=== PATIENT | female | born 1955 | race Caucasian/White ===

== ENCOUNTER → 2017-10-17 | Outpatient (CLI) | payer MEDICARE, MEDICAID ==
[~2017-10-17] MED LIST: ACTONEL; AMITIZA 24 MCG24 MC1 PO; BONIVA150 MG PO; CHOLESTEROL MED; CIPRO250 M1; CIPRO250 M1 PO; COMBIVENT INH; CYMBALTA30 MG PO; DILAUDID 2 MG TA2 MG PO; DONNATAL; DOXYCYCLINE; DULCOLAX5 MG PO; EZETIMIBE; FENTANYL PA50 MCG/HR TRANSDERM; FLEXERIL PO; LIORESAL 10 MG10 MG PO; MIRALAX255 GM PO; NAPROSYN500 MG PO; OMEPRAZOLE; ONDANSETRON HCL4 M2 PO; OXYCODONE HCL 55 MG PO; OXYCODONE HCL5 M1 PO; OXYCONTIN PO; OXYCONTIN20 M1 PO; OXYCONTIN30 MG PO; OXYCONTIN40 MG PO; PRILOSEC2.5 MG; PRINIVIL20 MG; RESTORIL15 M1 PO; RESTORIL30 MG PO; ROXICODONE5 M2 PO; SPIRIVA INH; ZESTRIL PO; ZYRTEC10 MG PO
--- NOTE | 2017-10-19 08:15 | PAINCON ---
[facility] [address] [place] [address] PAIN MANAGEMENT CONSULTATION Name: SONJA GARCÍA Room: [facility] Dina#: [id number] Admission: 10/17/17 Attend Phys: Nba Amador Discharge: Date of : 57 Report #: [id number] THIS REPORT FOR: //name// CC: FAM unknown Ruben Contreras The patient is a 62-year-old female, typically treated for axial back pain, SI mediated pain, chronic pain syndrome, history of TMJ dysfunction, requiring high risk complex medication management. Last seen in the pain clinic 08/22/2017, continued on baseline medication, having weaned down from OxyContin 40 mg b.i.d. to 30 mg b.i.d., oxycodone 5 mg 4 times a day. Restoril weaned from 30 to 15 mg, now using 20/30 nights. Co-analgesics include baclofen 10 mg t.i.d., Cymbalta 30 mg daily, Amitiza for opiate-induced constipation 24 mcg, temazepam as noted 15 mg, dispensed 20 tablets for 30 days. She returns to pain clinic today noting subjective pain score is 7.5/10 on the VAS, 5 feet 2 inches, 132 pounds female, BMI is 24.3 kg/m2. Blood pressure 137/85, pulse 89, and respirations are 16. She continues to use tobacco products and was counseled regarding same. She notes cold weather seems to make pain worse, pain is primarily in the mid back today along with her chronic TMJ pain. She is suffering from some insomnia. We spent a good deal of time today talking again about sleep hygiene. Told the patient to eschew TV at bedtime, reading from a digital pad, suggest reading from print literature as it tends to be somewhat less stimulating in the visual cortex and relaxing. Television watching tends to stimulate multiple areas with high animation in the brain. We reviewed the fact that opiate medications are being used to provide analgesia adequate to support activities of daily living, not attempting to achieve a specific pain score on the 0-10 Visual Analog Scale. The current opiate medications are providing sufficient analgesia to allow the patient to participate in activities of daily living. The patient is not exhibiting any aberrant behavior suggestive of drug diversion. The patient is not having any adverse reactions to medications. The patient is not suffering from daytime somnolence or mental acuity changes. The patient is managing opiate-induced constipation with appropriate srob-cus-kegkblb agents and dietary considerations. The patient was counseled on concern for caution with operating a motor vehicle while using opiate medications. A physical exam was performed and the patient's functional status was evaluated. All patients with back pain were advised against the bed rest greater than 4 days and were advised to return to normal activities. Pain score assessment was noted and the treatment plan was reviewed with the patient. All current medications, both prescribed and OTC were reviewed and reconciled on the electronic medical record. Tobacco screening was accomplished and smoking cessation was advised when indicated. BMI was noted and diet/[place] [address] PAIN MANAGEMENT CONSULTATION Name: SONJA GARCÍA Room: [facility] Arroyo#: [id number] Admission: 10/17/17 Attend Phys: Nba Amador Discharge: Date of : 57 Report #: [id number] modification was recommended for all patients following outside normal parameters. I reviewed with the patient today their responsibilities to safeguard prescription medications, reviewed their responsibility to utilize medications only as prescribed by the physician. They are to seek and receive pain medications only from 1 physician group ( [facility]). They are to use 1 pharmacy and keep the clinic informed if they change pharmacies. Their responsibilities include making followup visits in a timely fashion and to avoid abrupt discontinuation of medication usage. Their responsibilities further include bringing their medications (bottles from the pharmacy with residual pills) to the visit for possible confirmation of pill counts and the patient understands it is their responsibility to submit to random drug screens to ensure both that the medications prescribed are present, and that no other controlled substances are present. All prescriptions provided today were generated electronically. ASSESSMENT: Chronic pain syndrome requiring high risk complex medication management, sacroiliac mediated pain, axial back pain, temporomandibular joint dysfunction, stable on baseline medication. RECOMMENDATION: Continue OxyContin 30 mg b.i.d., oxycodone 5 mg up to 4 a day. The patient does not require prescriptions for her adjuvant medications. Buccal drug swab was obtained today. No aberrant behavior suggestive of drug diversion, simply complying with our opiate consent to treat contract. Discharged in good and stable condition. <ELECTRONICALLY SIGNED> By: Ruben Contreras DO 10/19/17 0815 [id number] [id number] Contreras DO /bhakti
== END ==
LOC: M.PC 02:01
DX: G89.4 Chronic pain syndrome (principal); M53.3 Sacrococcygeal disorders, not elsewhere classified; M54.89 Other dorsalgia; M26.69 Other specified disorders of temporomandibular joint; Z79.899 Other long term (current) drug therapy

== ENCOUNTER → 2017-12-12 | Outpatient (CLI) | payer MEDICARE, MEDICAID ==
--- NOTE | 2017-12-13 10:21 | PAINCON ---
[facility] [address] [place] [address] PAIN MANAGEMENT CONSULTATION Name: SONJA GARCÍA Room: [facility] Arroyo#: [id number] Admission: 12/12/17 Attend Phys: Nba Amador Discharge: Date of : 57 Report #: [id number] THIS REPORT FOR: //name// CC: FAM unknown Sam Contreras The patient is a 62-year-old female being treated for chronic SI mediated pain, axial back pain, history of TMJ dysfunction, a component of insomnia, requiring complex medication management. Last seen in the pain clinic on 10/17/2017. Continued on OxyContin 30 mg b.i.d. (decreased from 40 mg b.i.d. about 6 months ago), oxycodone 5 mg 4 times a day for breakthrough pain. We recognized that this still reflects a supratherapeutic dose of narcotic, roughly 120 mg of morphine. Continued Restoril 15 mg at bedtime, limit 20 tablets for 30 days (down from 30 mg, 30 tablets monthly), baclofen 10 mg 3 times a day, Cymbalta 30 mg daily and Amitiza for opiate-induced constipation (24 mcg). The patient continues to smoke and was counseled regarding same. Last buccal drug swab of 10/17/2017 was positive for prescribed medications as well as a nicotine byproduct. Physical exam is otherwise unchanged. A pleasant 62-year-old female. She is osteoporotic and does use Boniva monthly. A cachectic with a BMI of approximately 19 kilograms per meter squared. Limited oral range of motion due to TMJ dysfunction, chronic pain, left greater than right TMJ. Rises from chair using armrest. Diffuse axial back pain. The lower extremity strength is symmetric and gait is actually tandem. We reviewed the fact that opiate medications are being used to provide analgesia adequate to support activities of daily living, not attempting to achieve a specific pain score on the 0-10 Visual Analog Scale. The current opiate medications are providing sufficient analgesia to allow the patient to participate in activities of daily living. The patient is not exhibiting any aberrant behavior suggestive of drug diversion. The patient is not having any adverse reactions to medications. The patient is not suffering from daytime somnolence or mental acuity changes. The patient is managing opiate-induced constipation with appropriate fooe-fvw-ertbzps agents and dietary considerations. The patient was counseled on concern for caution with operating a motor vehicle while using opiate medications. A physical exam was performed and the patient's functional status was evaluated. All patients with back pain were advised against the bed rest greater than 4 days and were advised to return to normal activities. Pain score assessment was noted and the treatment plan was reviewed with the patient. All current medications, both prescribed and OTC were reviewed and reconciled on the electronic medical record. Tobacco screening was accomplished and smoking cessation was advised when indicated. BMI was noted and diet/[place] [address] PAIN MANAGEMENT CONSULTATION Name: SONJA GARCÍA Room: [facility] Arroyo#: [id number] Admission: 12/12/17 Attend Phys: Nba Amador Discharge: Date of : 57 Report #: [id number] modification was recommended for all patients following outside normal parameters. I reviewed with the patient today their responsibilities to safeguard prescription medications, reviewed their responsibility to utilize medications only as prescribed by the physician. They are to seek and receive pain medications only from 1 physician group ( [facility]). They are to use 1 pharmacy and keep the clinic informed if they change pharmacies. Their responsibilities include making followup visits in a timely fashion and to avoid abrupt discontinuation of medication usage. Their responsibilities further include bringing their medications (bottles from the pharmacy with residual pills) to the visit for possible confirmation of pill counts and the patient understands it is their responsibility to submit to random drug screens to ensure both that the medications prescribed are present, and that no other controlled substances are present. All prescriptions provided today were generated electronically. ASSESSMENT: Chronic axial back pain, lumbar radiculopathy, sacroiliac mediated pain, history of temporomandibular joint dysfunction, requiring complex medication management; component of insomnia and nicotine habituation. RECOMMENDATIONS: 1. Long discussion with the patient today about therapeutic options. Continue Restoril 15 mg, limit 20 tablets for 30 days. We again stressed sleep hygiene. 2. Smoking cessation strongly encouraged. 3. Continue baclofen, Cymbalta and Amitiza unchanged. We did continue baseline narcotic, OxyContin 30 mg b.i.d. with oxycodone 5 mg 4 times a day. We had trialed decreasing the OxyContin 20 mg b.i.d. with significant decrease in functional status. Today, we talked about moving forward, perhaps in 2 months when the weather is a little warmer decreasing OxyContin to an asymmetric dosing, OxyContin 30 mg in the morning with 20 mg at bedtime, decreasing the overall OxyContin load from 60-50 mg. We will try this for 2 months. Hopefully, we can then wean down to 20 mg b.i.d. I talked about concerns for supratherapeutic dose of narcotic and concurrent opiate habituation tolerance and most importantly opiate-induced hyperalgesia. Despite a supratherapeutic load of narcotic, 80 mg of oxycodone, roughly equating to 120 mg of morphine, the patient continues to complain of axial back pain. She rates anywhere from 6-9 on a VAS. Again, strongly recommended smoking cessation and increased physical activity. We will move forward with further opiate wean [place] [address] PAIN MANAGEMENT CONSULTATION Name: SONJA GARCÍA BHAVNA [id number] Admission: 12/12/17 Attend Phys: Nba Amador Discharge: Date of : 57 Report #: [id number] Discharged in good and stable condition after moderately prolonged visit spent counseling the patient, greater than 25 minutes was spent with the patient reviewing therapeutic options, issues and concerns for supratherapeutic narcotic. <ELECTRONICALLY SIGNED> By: Ruben Contreras DO 12/13/17 1021 0848 [id number] Contreras DO /nt
== END ==
LOC: M.PC 03:34
DX: M53.3 Sacrococcygeal disorders, not elsewhere classified (principal); M54.9 Dorsalgia, unspecified; G47.00 Insomnia, unspecified; F17.200 Nicotine dependence, unspecified, uncomplicated; M54.16 Radiculopathy, lumbar region; Z79.899 Other long term (current) drug therapy

== ENCOUNTER → 2018-02-06 | Outpatient (CLI) | payer MEDICARE, MEDICAID ==
--- NOTE | 2018-02-07 09:37 | PAINCON ---
[facility] [address] [place] [address] PAIN MANAGEMENT CONSULTATION Name: SONJA GARCÍA Room: [facility] Dina#: [id number] Admission: 02/06/18 Attend Phys: Nba Amador Discharge: Date of : 57 Report #: [id number] THIS REPORT FOR: //name// CC: FAM unknown Ruben Contreras DATE OF SERVICE: 02/06/2018 HISTORY OF PRESENT ILLNESS: The patient is a 62-year-old female being treated for SI mediated pain and chronic TMJ pain. The patient has weaned down from OxyContin 40 mg b.i.d. in the fall to OxyContin 30 mg b.i.d. Continued on oxycodone 5 mg 4 times a day. Co-analgesics include baclofen 10 mg t.i.d., Cymbalta 30 mg daily, Amitiza for opiate-induced constipation and Restoril 15 mg at bedtime, limit 20 tablets for 30 days. Since we last saw the patient, she was admitted to the hospital on 01/14/2018 through 01/21/2018 for colitis, sepsis and MRSA infection. She did finish her antibiotics. She has not had to use MiraLax or Amitiza with the antibiotics. She notes she has been following up with the Dental Surgery again at [facility]. She has dramatic limitation in range of motion of the TMJ. Left TMJ is essentially frozen. Right TMJ moves perhaps 1-2 mm. She can open her mouth, maybe, 5 mm and close her mouth about 3 mm. Mastication is really impossible. She has very poor fitting dentures due to inability to open. She has continued to smoke, though she states she is using "less" tobacco. She did get a CT scan of her head last week and consideration for surgery. Today, we did discuss ongoing weaning opiate. We had tried in the past weaning from OxyContin 30 mg down to 20 mg b.i.d. with diminished functional status. Today, we talked about decreasing to an asymmetric dose, continuing OxyContin 30 mg in the morning but decreasing OxyContin 20 mg at bedtime. Continue oxycodone 5 mg 4 times a day. We will try this for 30 days and then drop to OxyContin 20 mg b.i.d. for 4-week release prescription. We will see the patient back in 2 months for reevaluation. In the interval, if she does move forward with surgery, may need to increase her basal narcotic back to OxyContin 30 mg b.i.d. We reviewed the fact that opiate medications are being used to provide analgesia adequate to support activities of daily living, not attempting to achieve a specific pain score on the 0-10 Visual Analog Scale. The current opiate medications are providing sufficient analgesia to allow the patient to participate in activities of daily living. The patient is not exhibiting any aberrant behavior suggestive of drug diversion. The patient is not having any adverse reactions to medications. The patient [place] [address] PAIN MANAGEMENT CONSULTATION Name: SONJA GARCÍA Room: [facility] [place]#: [id number] Admission: 02/06/18 Attend Phys: Nba Amador Discharge: Date of : 57 Report #: [id number] somnolence or mental acuity changes. The patient is managing opiate-induced constipation with appropriate muen-het-pjbxqoq agents and dietary considerations. The patient was counseled on concern for caution with operating a motor vehicle while using opiate medications. A physical exam was performed and the patient's functional status was evaluated. All patients with back pain were advised against the bed rest greater than 4 days and were advised to return to normal activities. Pain score assessment was noted and the treatment plan was reviewed with the patient. All current medications, both prescribed and OTC were reviewed and reconciled on the electronic medical record. Tobacco screening was accomplished and smoking cessation was advised when indicated. BMI was noted and diet/exercise modification was recommended for all patients following outside normal parameters. I reviewed with the patient today their responsibilities to safeguard prescription medications, reviewed their responsibility to utilize medications only as prescribed by the physician. They are to seek and receive pain medications only from 1 physician group ( [facility]). They are to use 1 pharmacy and keep the clinic informed if they change pharmacies. Their responsibilities include making followup visits in a timely fashion and to avoid abrupt discontinuation of medication usage. Their responsibilities further include bringing their medications (bottles from the pharmacy with residual pills) to the visit for possible confirmation of pill counts and the patient understands it is their responsibility to submit to random drug screens to ensure both that the medications prescribed are present, and that no other controlled substances are present. All prescriptions provided today were generated electronically. Physical exam shows a 62-year-old female. Again, she continues to smoke. BMI is 24.2 kilograms per meter squared. Blood pressure , pulse 91, respirations 16. Again, TMJ range of motion dramatically limited. Cervical range of motion is modestly limited. Upper extremity strength is symmetric. Diffuse tenderness across the low back. Gait is tandem. She does favor the right leg. States she had MRSA infection on her right foot. This is resolving. I did not examine the wound, left the dressings intact. ASSESSMENT: Chronic pain syndrome requiring complex medication management, temporomandibular joint dysfunction and lumbosacral spondylosis, all requiring complex medication management. RECOMMENDATION: Renew current medication as noted above including a slight wean in opiate. We have elected to get a buccal swab today. No aberrant behavior [place] [address] PAIN MANAGEMENT CONSULTATION Name: SONJA GARCÍA BHAVNA [facility] [id number] Admission: 02/06/18 Attend Phys: Nba Amador Discharge: Date of : 57 Report #: [id number] The patient was seen for prolonged visit today from 8:45 to 9:15, greater than 50% of this time spent reviewing plan, surgical issues moving forward, need, desire and reasons for opiate wean. I did discuss that I was leaving this practcice and that patient may need to find another physician to manage her pain needs. She indicated that she will follow up with her treating physicains at [facility]. Discharged in good and stable condition. <ELECTRONICALLY SIGNED> By: Ruben Contreras DO 02/07/18 0937 [id number] Contreras DO /nt
== END ==
LOC: M.PC 04:35
DX: M47.897 Other spondylosis, lumbosacral region (principal); G89.4 Chronic pain syndrome; M26.609 Unspecified temporomandibular joint disorder, unspecified side; Z79.899 Other long term (current) drug therapy

== ENCOUNTER → 2018-04-03 | Outpatient (CLI) | payer MEDICARE, MEDICAID ==
--- NOTE | 2018-04-04 07:56 | PAINCON ---
[facility] [address] [place] [address] PAIN MANAGEMENT CONSULTATION Name: SONJA GARCÍA BHAVNA Room: [facility] NEEMA Arroyo#: [id number] Admission: 04/03/18 Attend Phys: Nba Amador Discharge: Date of : 57 Report #: [id number] THIS REPORT FOR: //name// CC: Dr. Gopal Contreras DATE OF SERVICE: 04/03/2018 The patient is a 62-year-old female, long treated for chronic TMJ pain, axial back pain requiring complex medication management. Last seen in the Pain Clinic 02/06/2018. Random drug screen at that time was positive for prescribed medications and positive for nicotine products as well. To her credit, she decreased to about half pack a day, but does continue to smoke. She did follow up with her dental surgeons at [facility]. While she is not a candidate for TMJ joint replacement, they are talking about doing a procedure, which may enable her to at least get a little better range of motion. Currently, she only has mandibular opening of about 1 cm. We had weaned her OxyContin from 40 b.i.d. to 30 b.i.d. and the last visit dropped down to 30 in the morning, 20 at night and her 4-week release OxyContin prescription was for 20 b.i.d. She returns to Pain Clinic today noting this is helpful. Pain continues to be problematic and she did note decreased functional status with each decrement in the opiate, but she is overall stable. Increasing axial back pain with an SI component as well. PHYSICAL EXAMINATION: Shows 62-year-old female, BMI is 23.7 kg/m2. Blood pressure shows modest hypertension (numbers are on the chart), pulse 87, respirations 16. Again, very tender over the left jaw, very limited range of motion of mandible. Cervical range of motion is tender. Rises from chair using armrest. Very tender over the SI joints. Positive AUDELIA test and Gaenslen's test. Lower extremity strength, however, is preserved. We reviewed the fact that opiate medications are being used to provide analgesia adequate to support activities of daily living, not attempting to achieve a specific pain score on the 0-10 Visual Analog Scale. The current opiate medications are providing sufficient analgesia to allow the patient to participate in activities of daily living. The patient is not exhibiting any aberrant behavior suggestive of drug diversion. The patient is not having any adverse reactions to medications. The patient is not suffering from daytime somnolence or mental acuity changes. The patient is managing opiate-induced constipation with appropriate iuix-mjl-hjsiegg agents and dietary considerations. The patient was counseled on concern for caution with operating a motor vehicle while [place] [address] PAIN MANAGEMENT CONSULTATION Name: SONJA GARCÍA BHAVNA Room: [facility].#: [id number] Admission: 04/03/18 Attend Phys: Nba Amador Discharge: Date of : 57 Report #: [id number] A physical exam was performed and the patient's functional status was evaluated. All patients with back pain were advised against the bed rest greater than 4 days and were advised to return to normal activities. Pain score assessment was noted and the treatment plan was reviewed with the patient. All current medications, both prescribed and OTC were reviewed and reconciled on the electronic medical record. Tobacco screening was accomplished and smoking cessation was advised when indicated. BMI was noted and diet/exercise modification was recommended for all patients following outside normal parameters. I reviewed with the patient today their responsibilities to safeguard prescription medications, reviewed their responsibility to utilize medications only as prescribed by the physician. They are to seek and receive pain medications only from 1 physician group ( [facility]). They are to use 1 pharmacy and keep the clinic informed if they change pharmacies. Their responsibilities include making followup visits in a timely fashion and to avoid abrupt discontinuation of medication usage. Their responsibilities further include bringing their medications (bottles from the pharmacy with residual pills) to the visit for possible confirmation of pill counts and the patient understands it is their responsibility to submit to random drug screens to ensure both that the medications prescribed are present, and that no other controlled substances are present. All prescriptions provided today were generated electronically. ASSESSMENT #1: Chronic temporomandibular joint pain, chronic; axial back pain; myofascial pain component, requiring complex medication management. RECOMMENDATION: After long discussion with the patient today, we like to continue OxyContin 20 mg b.i.d. Continue oxycodone 5 mg up to 4 a day. We will try and gradually drop this down to 100 tablets for 30 days at next visit. We may consider again another asymmetric dosing change, OxyContin 20 mg in the morning and either OxyContin 10 or 15 at bedtime. Presently, the OxyContin 20 mg b.i.d. and oxycodone 5 mg 4 a day, the patient is taking effectively 90 mg morphine equivalent daily. While this does place her at the high end of the "mid risk group," we will like to try and wean further if able. I have taken the liberty of writing for 2 months of current medication including baclofen 10 mg t.i.d. for spasm and Cymbalta 30 mg at bedtime. ASSESSMENT #2: Lumbosacral spondylosis without myelopathy and SI mediated pain. RECOMMENDATION: Bilateral SI joint injection under fluoroscopy. PROCEDURE NOTE: After written and informed consent was obtained including risk of infection, nerve trauma, increased pain and weakness, the patient wishes to proceed. The patient was taken to the fluoroscopy suite, [place] [address] PAIN MANAGEMENT CONSULTATION Name: SONJA GARCÍA Room: [facility] Arroyo#: [id number] Admission: 04/03/18 Attend Phys: bNa Amador Discharge: Date of : 57 Report #: [id number] position. The sacroiliac joint was visualized using the C-arm, turned in an oblique fashion to align the joint. The skin overlying the area was cleansed with ChloraPrep. Skin wheal with Xylocaine was raised. A 22 gauge spinal needle was inserted into the inferior aspect of the joint. A low volume extension tubing was then attached to the needle after the stylet was removed. Negative aspiration was accomplished. A 1 mL of Omnipaque was injected which showed spread within the SI joint. 40 mg triamcinolone plus 2 mL of 0.5% preservative-free bupivacaine was injected into the joint. Needle was removed. Attention was then turned to the contralateral joint which was treated in an identical fashion. After both needles were removed the prep was washed off. Two Band-Aids were applied over the puncture sites. The patient was allowed to ambulate to the recovery room, monitored for an appropriate period of time, discharged in good and stable condition. <ELECTRONICALLY SIGNED> By: Ruben Contreras DO 04/04/18 0756 [id number] [id number] Centerchemo Contreras DO /nt
== END | disposition home or self-care (01) ==
LOC: M.PC 04:13
DX: M53.3 Sacrococcygeal disorders, not elsewhere classified (principal); G89.29 Other chronic pain; M47.817 Spondylosis without myelopathy or radiculopathy, lumbosacral region; M26.609 Unspecified temporomandibular joint disorder, unspecified side; M79.1 Myalgia; Z88.0 Allergy status to penicillin; Z79.891 Long term (current) use of opiate analgesic; Z88.8 Allergy status to other drugs, medicaments and biological substances; Z79.899 Other long term (current) drug therapy; Z98.890 Other specified postprocedural states

== ENCOUNTER → 2018-05-28 | Outpatient (CLI) | payer MEDICARE, MEDICAID ==
--- NOTE | 2018-05-31 08:37 | PAINCON ---
[address] [address] PAIN MANAGEMENT CONSULTATION Name: SONJA GARCÍA BHAVNA Room: [facility] HERMELINDA Frank.#: [id number] Admission: 05/28/18 Attend Phys: Dustin Syed MD Discharge: Date of : 57 Report #: [id number] THIS REPORT FOR: //name// CC: Dustin Kennedy DATE OF SERVICE: 05/28/2018 CHIEF COMPLAINT: Mid back and low back pain. HISTORY OF PRESENT ILLNESS: The patient is a 62-year-old female who is experiencing pain in her low and mid back area. She has chronic pain in her jaw as well. She states that she bent over to get an item out of a baby's crib. At that time, she felt some pain and discomfort in her rib cage. She feels that she may have fractured a rib. She states that she has osteoporosis and has had rib fractures in the past. The patient also is undergoing surgery because of jaw pain. She is going to have jaw surgery in 07/2018. She finds that oxycodone, baclofen and Cymbalta continue to be helpful items. She rates her pain as an 8/10 at this juncture. She was given a drug test. Appropriate metabolites were found indicating that she has most likely taken her medications as prescribed. She states that she is trying to discontinue the use of tobacco. ALLERGIES: PENICILLIN, CEPHALEXIN. CURRENT MEDICATIONS: Baclofen 10 mg t.i.d., temazepam 15 mg at bedtime, Dulcolax 5 mg, Zyrtec 10 mg, Cymbalta 30 mg at bedtime, Boniva 150 mg monthly, Combivent p.r.n. shortness of breath, lisinopril 20 mg, Amitiza 24 mg b.i.d., Naprosyn 500 mg b.i.d., ____ 2.5; Zofran, the patient states she stopped taking this medication, it was given to her in 2015 when she had renal infection; oxycodone 5 mg four times daily, OxyContin 20 mg one p.o. b.i.d., ciprofloxacin for sinus infection, prednisone Dosepak. PAST MEDICAL HISTORY: 1. Axial back pain. 2. SI joint mediated pain. 3. Chronic pain syndrome. 4. History of TMJ dysfunction. 5. Hepatitis C. PAIN CLINIC ASSESSMENT: 1. History of osteoarthritis: The patient states that she has osteoporosis, has osteoarthritis involving her knees, back and jaw. 2. Height 5 feet 2 inches, weight 128 pounds, BMI is 23.9. 3. Vital signs: Blood pressure 126/91, heart rate 100, respiratory rate 16, room air saturation 95%, temperature 98.8. 4. Pain score: 8/10. Pain areas are TMJ where a graft has been placed, [place] [address] PAIN MANAGEMENT CONSULTATION Name: SONJA GARCÍA BHAVNA [facility] [id number] Admission: 05/28/18 Attend Phys: Dustin Syed MD Discharge: Date of : 56 Report #: [id number] back and thoracic pain after bending over the crib, and noting some increased pain in the thoracic area of her rib, thoracic discomfort. 5. Blood thinner: The patient is not on a blood thinning medication. 6. Hypertension: The patient is being treated for hypertension. 7. Opioid therapy greater than 6 weeks: The patient is on opioid medication and receives her medications from the Pain Clinic. 8. Risk assessment tool. 9. Functional assessment tool. 10. Recreational drug use: The patient denies use of recreational drugs. 12. Tobacco: The patient has 50 packs a year history of smoking and smokes three-quarters of a pack of cigarettes per day. She was smoking 1-1/2 packs per day. 13. Alcohol: The patient denies use of alcoholic beverages. PHYSICAL EXAMINATION: GENERAL: The patient is a well-developed white female. She appears her stated age. She is alert and oriented x 3. Affect is appropriate. Speech is normal. The patient smells of tobacco. HEENT: Normocephalic, atraumatic. Extraocular eye muscles intact. Sclerae nonicteric. Mucous membranes are moist. NECK: With good range of motion. Upper extremity muscle strength is judged to be generally 5/5. HEART: Regular rate. ABDOMEN: Nontender. MUSCULOSKELETAL: Without significant scoliosis, kyphosis, or lordosis. The patient complains of pain in the right rib area. She states that she bent over a baby bed and felt something crack. She states she has osteoporosis and has had fractured ribs in the past. This has been problematic for the last 2 weeks. The patient has some pain and discomfort in the low back area, in the area of the SI joint. IMPRESSION: 1. Axial back pain. 2. History of sacroiliac joint mediated pain. 3. Chronic pain syndrome, treated with complex medical management. 4. History of temporomandibular joint dysfunction. 5. History of hepatitis C. The patient states that she has been treated appropriately for that condition. 6. Opioid-induced constipation. RECOMMENDATIONS: We discussed treatment options with the patient. At this juncture, we will provide a renewal of her current medications which include Restoril 15 mg a total of 20 tablets, hydrocodone 5 mg one p.o. t.i.d./q.i.d. 120 tablets, OxyContin 20 mg one p.o. b.i.d., baclofen 10 mg t.i.d. p.r.n. muscle spasms, Cymbalta 30 mg at bedtime, Amitiza 24 mg. The patient will return to the Pain Clinic in 2 months. She will call us [place] [address] PAIN MANAGEMENT CONSULTATION Name: SONJA GARCÍA BHAVNA Room: [facility]#: [id number] Admission: 05/28/18 Attend Phys: Dustin Syed MD Discharge: Date of : 57 Report #: [id number] prior to that. We would like to thank you for letting us participate in her care. We hope she continues to improve. <ELECTRONICALLY SIGNED> By: Dustin Syed MD 05/31/18 0837 0019 [id number]. Zeke Syed MD /nt
== END ==
LOC: M.PC 04:48
DX: M54.5 Low back pain (principal); M53.3 Sacrococcygeal disorders, not elsewhere classified; G89.4 Chronic pain syndrome; F11.99 Opioid use, unspecified with unspecified opioid-induced disorder; Z79.899 Other long term (current) drug therapy

== ENCOUNTER → 2018-07-25 | Outpatient (CLI) | payer MEDICARE, MEDICAID ==
--- NOTE | 2018-07-29 10:30 | PAINCON ---
[address] [address] PAIN MANAGEMENT CONSULTATION Name: SONJA GARCÍA Room: [facility] NEEMA Arroyo#: [id number] Admission: 07/25/18 Attend Phys: Dustin Syed MD Discharge: Date of : 57 Report #: [id number] THIS REPORT FOR: //name// CC: Dustin Kennedy DATE OF SERVICE: 07/25/2018 CHIEF COMPLAINT: "My back was hurting up in the middle, but is not so much today. Medicines working okay. HISTORY: The patient is a 62-year-old female who has been followed in the pain clinic. She has mid back and low back pain. She states that her pain overall is feeling reasonably well today. Has noted some changes secondary to the weather pattern. She did have some increased pain in the upper back last week. Today is less problematic. She does have some pain in the lower right back area. She is in the process of getting her jaw surgery. She states that she has had the surgery and is expecting to move forward in getting her teeth. She is scheduled in the near future. She rates her pain overall as an 8/10 today. On average, it usually is about 6/10. She has had no falls, no problems since we saw her last. She still feels that her oxycodone, baclofen and Cymbalta are helpful. Keeps her medications in a guarded area. She states that she is still trying to decrease use of tobacco. ALLERGIES: PENICILLIN AND CEPHALEXIN, CURRENT MEDICATIONS: Baclofen 10 mg t.i.d., temazepam 50 mg at bedtime, Dulcolax 5 mg, Zyrtec 10 mg, Cymbalta 30 mg at bedtime, Boniva 150 mg monthly, Combivent p.r.n. shortness of breath, lisinopril 20 mg, Amitiza 24 mg b.i.d., Naprosyn 500 mg b.i.d., Zofran. The patient has stopped taking this secondary to "renal infection", oxycodone 5 mg q.i.d., OxyContin 20 mg b.i.d., ciprofloxacin for sinus infection, prednisone Dosepak in the past. PAIN CLINIC ASSESSMENT/PQRS: 1. History of osteoarthritis. The patient states that she has had osteoarthritic changes and replacement of her right knee. Also, has some changes in her back and jaw. 2. The patient has not been treated for rheumatoid arthritis. 3. Height 5 feet 2 inches, weight 128 pounds and BMI is 23.9. 4. Vital signs: Blood pressure 122/73, heart rate 79, respiratory rate 16, room air saturation 96% and temperature 97.8. 4. Pain intensity 8/10. 5. Fall risk. The patient has not fallen in the last 3 months. 6. Blood thinners. The patient is not on a blood thinning medication. 7. Hypertension. The patient has been treated for hypertension. 8. Opioid therapy greater than 6 weeks. [place] [address] PAIN MANAGEMENT CONSULTATION Name: SONJA GARCÍA [facility] [id number] Admission: 07/25/18 Attend Phys: Dustin Syed MD Discharge: Date of : 57 Report #: [id number] from one source, the pain clinic. 9. Risk assessment tool. 10. Functional assessment tool. 11. Recreational drug use. The patient denies use of recreational drugs. 12. Tobacco: The patient has a 29-lkdc-jtqd history. States she is taking smoking 1-1/2-3/4 of pack of cigarettes per day. He has been trying to decrease the use. We spoke with the patient about 3 minutes regarding the benefits of cessation of tobacco. 13. Alcohol: The patient denies use of alcoholic beverages. PHYSICAL EXAMINATION: GENERAL: The patient is a well-developed, well-nourished white female. Appears stated age. She is alert and oriented x 3. She does smell of tobacco. Affect is appropriate. Speech is fluent. HEENT: Normocephalic, atraumatic. Extraocular eye muscles intact. Sclerae nonicteric. Mucous membranes are moist. NECK: With good range of motion. Upper extremity muscle strength is judged to be 5/5. HEART: Regular rate. ABDOMEN: Nontender. The patient has some upper mid back discomfort. MUSCULOSKELETAL: Without significant scoliosis, kyphosis or lordosis. The patient has pain in the right rib area. She still has some discomfort. 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 History of osteoporosis and has had rib fractures in the past. The patient has had some pain and discomfort in the SI joint area. IMPRESSION: 1. Axial back pain. 2. History of sacroiliac joint mediated pain. 3. Chronic pain syndrome treated with complex medication management. 4. History of SI joint dysfunction. 5. History of hepatitis C. The patient states that she has been treated for that condition. 6. Opioid-induced constipation. RECOMMENDATIONS: We discussed treatment options with the patient. We will continue with the current medications. We discussed the use of opioid medications. We explained again that opioid medications can become problematic and cause dependency. The patient can also lose efficacy of medication secondary to chronicity of use. Overall, the patient feels that her medications are working reasonably well. They enable her to engage in activities of daily living, she would not be able to without their use. She has had no [facility] [address] [place] [address] PAIN MANAGEMENT CONSULTATION Name: SONJA GARCÍA BHAVNA Room: [facility].#: [id number] Admission: 07/25/18 Attend Phys: Dustin Syed MD Discharge: Date of : 57 Report #: [id number] complications that would like to continue. We would like to thank you for letting us participate in her care. We hope she continues to improve. <ELECTRONICALLY SIGNED> By: Dustin Syed MD 07/29/18 1030 0944 [id number]. Zeke Syed MD /nt
== END ==
LOC: M.PC 05:16
DX: M54.5 Low back pain (principal); K59.09 Other constipation; G89.4 Chronic pain syndrome; Z98.1 Arthrodesis status; Z86.19 Personal history of other infectious and parasitic diseases

== ENCOUNTER → 2018-09-19 | Outpatient (CLI) | payer MEDICARE, MEDICAID ==
--- NOTE | 2018-09-20 17:20 | PAINCON ---
[address] [address] PAIN MANAGEMENT CONSULTATION Name: SONJA GARCÍA Room: [facility] NEEMA Arroyo#: [id number] Admission: 09/19/18 Attend Phys: Dustin Syed MD Discharge: Date of : 57 Report #: [id number] THIS REPORT FOR: //name// CC: Brent Kennedy DATE OF SERVICE: 09/19/2018 FOLLOWUP HISTORY: The patient is a 63-year-old female who has been followed in the pain clinic because of chronic pain. She has pain in the mid back area. Also, has overall pain in her jaw. As you may recall, she had surgery in 1980s. She had studs placed in her mouth for dentures or for teeth. After a period of time they noticed that this caused some erosion of the bone in her mouth. She then underwent surgery and had rib graft. States that the rib grafts have continued to grow over the years, it used to be that they would grind them down. At this juncture, she is having limited ability to open her mouth. She is scheduled to see her surgeon on 10/01/2018 to see if anything additional can be done. She states that eating is difficult. She is unable to chew or open her mouth greater than an inch. She rates her pain today as 7.5/10. She is on antibiotics for sinus infection. Overall, things are stable. She would like to have her medications renewed. Feels that her oxycodone, baclofen, and Cymbalta are helpful. Still continues to try to decrease the amount of tobacco use. ALLERGIES: PENICILLIN/CEPHALEXIN. CURRENT MEDICATIONS: Baclofen 10 mg t.i.d., temazepam 50 mg at bedtime, Dulcolax 5 mg, Zyrtec 10 mg, Cymbalta 30 mg at bedtime, Boniva 150 mg monthly, Combivent p.r.n. shortness of breath, lisinopril 20 mg, Amitiza 24 mg b.i.d., Naprosyn 500 mg b.i.d., Zofran. The patient stopped taking Zofran secondary to renal infection. Oxycodone 5 mg q.i.d., OxyContin 20 mg b.i.d., ciprofloxacin for sinus infection, and prednisone Dosepak in the past. PAIN CLINIC ASSESSMENT/PQRS: 1. History of osteoarthritis. The patient states that she has some osteoarthritic changes in her right knee. Also, has some changes in her back and jaw. The patient is not being treated for rheumatoid arthritis. 2. Height 5 feet 2 inches, weight 133 pounds, BMI is 24.7. 3. Vital signs: Blood pressure 128/55, heart rate 96, respiratory rate 16, room air saturation 96%, temperature 97.4. 4. Pain intensity 7.5/10. 5. Fall history: The patient has not fallen in the last 3 months. 6. Blood thinner. The patient is not on a blood thinning medication. 7. Hypertension. The patient is not being treated for hypertension. 8. Opioid greater than 6 weeks. The patient receives her medications from 1 source, the pain clinic. [address] [place] [address] PAIN MANAGEMENT CONSULTATION Name: SONJA GARCÍA [facility] [id number] Admission: 09/19/18 Attend Phys: Dustin Syed MD Discharge: Date of : 57 Report #: [id number] 9. Functional assessment tool, low for opioid use. 10. Recreational drug use. The patient denies use of recreational drugs. 11. Tobacco. The patient is smoking 3/4 of a pack of cigarettes per day, has smoked for the last 50 years. We again discussed the benefits of cessation of tobacco use. 12. Alcohol use. The patient denies frequent use of alcoholic beverages. PHYSICAL EXAMINATION: GENERAL: The patient is a well-developed, well-nourished white female. Appears her stated age. She is alert and oriented x 3. Her affect is appropriate. Speech is fluent. HEENT: Normocephalic, atraumatic. Extraocular eye muscles intact. Sclerae nonicteric. Mucous membranes are moist. NECK: Without adenopathy or JVD. The patient has very limited ability to open her mouth with her dentures in place. There is about an 8-1/4 of an inch opening. HEART: Regular rate. ABDOMEN: Nontender. The patient does have some mid back discomfort. MUSCULOSKELETAL: Without significant scoliosis, kyphosis, or lordosis. Pain in the right rib area. 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 Has some discomfort in the area of her SI joint. IMPRESSION: 1. Axial back pain. 2. History of sacroiliac joint, mediated pain. 3. Chronic pain treated with complex medical management. 4. History of sacroiliac joint dysfunction. 5. History of hepatitis C. The patient states that she has been treated for that condition. 6. Opioid-induced constipation. RECOMMENDATIONS: We will continue with the patient's current medical regimen. A script for her medications has been rewritten. She will continue with the oxycodone 20 mg 1 p.o. b.i.d.; OxyIR 5 mg 1 p.o. q.4-6h, total of 120 tablets have been dispensed; Temazepam 15 mg 1 p.o. at bedtime, total of 20 tablets have been dispensed; Baclofen 10 mg 1 p.o. t.i.d., total of 90 tablets; Cymbalta 30 mg at bedtime; and Amitiza 24 mg b.i.d. She will call us if she has any concerns. We hope she continues to improve. The patient is going to see her dentist, hopefully they will be able to find a way to improve her jaw motion[place] [address] PAIN MANAGEMENT CONSULTATION Name: SONJA GARCÍA BHAVNA Room: [facility].#: [id number] Admission: 09/19/18 Attend Phys: Dustin Syed MD Discharge: Date of : 57 Report #: [id number] can eat better. We would like to thank you for letting us participate in her care. <ELECTRONICALLY SIGNED> By: Dustin Syed MD 09/20/18 1720 1728 [id number] Syed MD /NOAM
== END ==
LOC: M.PC 04:39
DX: M54.5 Low back pain (principal); G89.29 Other chronic pain; M53.3 Sacrococcygeal disorders, not elsewhere classified; K59.09 Other constipation; Z79.899 Other long term (current) drug therapy; Z86.19 Personal history of other infectious and parasitic diseases

== ENCOUNTER → 2018-11-14 | Outpatient (CLI) | payer MEDICARE, MEDICAID ==
--- NOTE | ~2018-11-14 | PAINCON ---
[address] [address] PAIN MANAGEMENT CONSULTATION Name: SONJA GARCÍA Room: [facility] Arroyo#: [id number] Admission: 11/14/18 Attend Phys: Dustin Syed MD Discharge: Date of : 56 Report #: [id number] THIS REPORT FOR: //name// CC: Dustin Kennedy DATE OF SERVICE: 11/14/2018 HISTORY: The patient is a 63-year-old female who has been followed in the pain clinic because of chronic pain. She has pain involving her back and mid back area. Also, has chronic pain involving her jaw. As you recall, she has had some surgeries. Because of jaw problems she underwent surgery for jaw bone erosion. A portion of her rib was placed and grafted into her jaw. As you may recall, it has continued to grow. Over the last few years, has continued to be problematic. She is limited in her ability to open her mouth. States that she is scheduled to undergo surgery in the future. Her physicians have requested that she stop smoking. She has smoked since she was age 14. Does continue to smoke at this juncture. Rates her pain as a 7/10. States that she was recently in the hospital because of ischemic colitis. Had quite a bit of problem with that. As she started to improve she developed some viral problem with diarrhea. Overall, that is getting better. She has been placed on aspirin, Protonix, and Zofran. States that she has noticed an increased problem with bleeding. If she has a procedure such as blood drawl. She believes longer than she would expect. ALLERGIES: PENICILLIN/CEPHALEXIN. CURRENT MEDICATIONS: Baclofen 10 mg t.i.d., temazepam 50 mg at bedtime, Dulcolax 5 mg, Zyrtec 10 mg, Cymbalta 30 mg at bedtime, Boniva 150 mg monthly, Combivent p.r.n. shortness of breath, lisinopril 20 mg, Amitiza 24 mg b.i.d., Naprosyn 500 mg b.i.d., Zofran. Oxycodone 5 mg q.i.d., OxyContin 20 mg b.i.d., ciprofloxacin for history of sinus infections, had prednisone Dosepak in the past. PAIN CLINIC ASSESSMENT/PQRS: 1. The patient is not being treated for osteoarthritis. She has not been treated for rheumatoid arthritis. Does have some osteoarthritic changes involving her right knee. Has some arthritic changes in her low back and jaw area as well. 2. Height 5 feet 2 inches, weight 134 pounds, BMI is 24. 3. Vital signs: Blood pressure 143/85, heart rate 88, respiratory rate 16, room air saturation 97%, temperature 98.5. 4. Pain intensity 7/10. IMPRESSION: 1. Fall history: The patient has not fallen in the last 3 months. 2. Blood thinner. The patient is not on a blood thinning medication, but does [address] [place] [address] PAIN MANAGEMENT CONSULTATION Name: SONJA GARCÍA Room: [facility]#: [id number] Admission: 11/14/18 Attend Phys: Dustin Syed MD Discharge: Date of : 57 Report #: [id number] feel that she believes somewhat easily. 3. Hypertension. The patient has not been treated for hypertension. 4. Opioid greater than 6 weeks. The patient has received her medication from one source, the pain clinic. 5. Functional assessment tool, low for opioid use. 6. Recreational drug use. The patient denies use of recreational drugs. 7. Tobacco: The patient smokes three-quarters of a pack of cigarettes and has smoked for about 50 years. Benefits of smoking cessation were discussed. We explained to the patient the reason for needing to stop smoking before her surgery, which would be less irritation of the airway, as well as improve circulation. 8. Alcohol use. The patient denies use of alcohol. PHYSICAL EXAMINATION: GENERAL: The patient is a well-developed, well-nourished white female. Appears her stated age. She is alert and oriented x 3. Her affect is appropriate. Speech is slow. HEAD, EYES, EARS, NOSE, AND THROAT: Normocephalic, atraumatic. Extraocular eye muscles intact. Sclerae nonicteric. Mucous membranes are moist. NECK: Without adenopathy or JVD. The patient has some limited ability to open her mouth. It is about one and one-quarter of an inch opening. HEART: Regular. ABDOMEN: Nontender. MUSCULOSKELETAL: Without significant scoliosis, kyphosis or lordosis. The patient has some right rib pain. Has some history of sacroiliac joint discomfort. IMPRESSION: 1. Axial back pain. 2. History of SI joint, mediated pain. 3. Chronic pain treated with complex medical management. 4. History of sacroiliac joint dysfunction. 5. History of hepatitis C. The patient states that she has been treated for that condition. 6. Opioid-induced constipation. RECOMMENDATIONS: We discussed treatment options with the patient. At this juncture, we will continue with her current medications. A script for her medications has been written. She will continue with the OxyIR 5 mg 1 p.o. every 4-6 hours total of 120 tablets, temazepam 15 mg 1 at bedtime, total of 20 tablets, baclofen 10 mg t.i.d., Cymbalta 30 mg at bedtime, Amitiza 24 mg, OxyContin 20 [place] [address] PAIN MANAGEMENT CONSULTATION Name: RAQUELSONJA [id number] Admission: 11/14/18 Attend Phys: Dsutin Syed MD Discharge: Date of : 57 Report #: [id number] We would like to thank you for letting us to participate in her care. We hope she continues to improve. By: [id number]. Zeke Syed MD /NOAM
== END ==
LOC: M.PC 08:00
DX: I10 Essential (primary) hypertension (principal); Z91.81 History of falling; Z72.89 Other problems related to lifestyle; Z79.891 Long term (current) use of opiate analgesic

== ENCOUNTER → 2019-01-09 | Outpatient (CLI) | payer MEDICARE, MEDICAID ==
--- NOTE | ~2019-01-09 | PAINCON ---
[address] [address] PAIN MANAGEMENT CONSULTATION Name: SONJA GARCÍA BHAVNA Room: [facility] Ar[place]o#: [id number] Admission: 01/09/19 Attend Phys: Dustin Syed MD Discharge: Date of : 57 Report #: [id number] THIS REPORT FOR: //name// CC: Brent Kennedy DATE OF SERVICE: 01/09/2019 HISTORY OF PRESENT ILLNESS: The patient is a 63-year-old female who has been followed in the Pain Clinic because of chronic pain. Has a number of pain areas which are problematic. Has had pain in her mid and upper back. States that she has some disk disease in the thoracic area as well as in the lumbar area. She continues to have problems with her jaw. Has not had surgery on it because her physicians have asked that she stop smoking. She has not been able to stop smoking at this juncture. She has a sinus infection at this juncture. She has undergone treatment with ciprofloxacin. She is on day #6. Rates her pain as a 7/10. The patient has smoked since age 14. Continues to smoke at this juncture. Has osteoporosis. ALLERGIES: PENICILLIN/CEPHALEXIN. MEDICATIONS: Baclofen 10 mg t.i.d., temazepam 50 mg at bedtime, Dulcolax 5 mg, Zyrtec 10 mg, Cymbalta 30 mg, Boniva 150 mg monthly, Combivent for shortness of breath, lisinopril 20 mg, Amitiza 24 mg b.i.d., Naprosyn 500 mg b.i.d., Zofran, oxycodone 5 mg q.i.d., and OxyContin 20 mg b.i.d. PAIN CLINIC ASSESSMENT/PQRS: 1. The patient is not being treated for rheumatoid arthritis. She does have some osteoarthritic changes in her back, her right knee as well as some problems with her jaw. 2. Height 5 feet 2 inches, weight 136 pounds. BMI 25.3. 3. Vital signs: Blood pressure 127/71, heart rate 82, respiratory rate 16, room air saturation 96%, temperature is 98.1. 4. Pain intensity /10. 5. Fall history: The patient has not fallen in the last 3 months. 6. Blood thinner. The patient is not on a blood thinning medication. 7. Hypertension. The patient is being treated for hypertension. 8. Opioids greater than 6 weeks. The patient receives her medication from one source, the Pain Clinic. 9. Functional assessment tool, low for opioid use. 10. Recreational drug use. The patient denies use of recreational drugs. 11. Tobacco: The patient continues to smoke. Again, we discussed the benefits of smoking cessation. Smokes 3/4 of cigarettes a day, has smoked for the last 50 years. Unable to get surgery because of her smoking. 12. Alcohol: The patient [place] [address] PAIN MANAGEMENT CONSULTATION Name: NAVEED GARCÍACindi HUGGINS Room: [facility] Arroyo#: [id number] Admission: 01/09/19 Attend Phys: Dustin Syed MD Discharge: Date of : 57 Report #: [id number] PHYSICAL EXAMINATION: GENERAL: The patient is a well-developed, well-nourished white female. Appears her stated age. She is alert and oriented x 3. Her affect is appropriate. Speech is fluent. HEENT: Normocephalic and atraumatic. Extraocular eye muscle intact. The patient is unable to open her mouth more than about half an inch because of the rigidity of her jaw. HEART: Regular rate. ABDOMEN: Nontender. The patient smells of tobacco. MUSCULOSKELETAL: Without significant scoliosis, kyphosis or lordosis. History of SI joint discomfort. IMPRESSION: 1. Axial back pain. 2. History of SI joint mediated pain. 3. Chronic pain, complex medical management. 4. History of hepatitis C. The patient has been treated for that condition. 5. Opioid-induced constipation. RECOMMENDATIONS: We discussed treatment options with the patient. We have again pressed upon the benefits of smoking cessation. She will continue with her medications. A script for her medications of Amitiza 24 mg b.i.d., baclofen, Cymbalta, Restoril, oxycodone 5 mg 1 p.o. q.i.d., OxyContin 20 mg one p.o. b.i.d. have been written. The patient will call us if she has any concerns. We would like to thank you for letting us participate in her care. We hope she continues to improve. By: [id number]. Zeke Syed MD /bhakti
== END ==
LOC: M.PC 00:29
DX: M54.5 Low back pain (principal); G89.29 Other chronic pain; M53.3 Sacrococcygeal disorders, not elsewhere classified; F11.988 Opioid use, unspecified with other opioid-induced disorder; Z79.899 Other long term (current) drug therapy; Z86.19 Personal history of other infectious and parasitic diseases

== ENCOUNTER → 2019-03-06 | Outpatient (CLI) | payer MEDICARE, MEDICAID ==
--- NOTE | ~2019-03-06 | PAINCON ---
[address] [address] PAIN MANAGEMENT CONSULTATION Name: SONJA GARCÍA Room: [facility] Arroyo#: [id number] Admission: 03/06/19 Attend Phys: Dustin Syed MD Discharge: Date of : 57 Report #: [id number] THIS REPORT FOR: //name// CC: Dustin Kennedy DATE OF SERVICE: 03/06/2019 CHIEF COMPLAINT: "Here for medication renewal and my back started to hurt again." HISTORY: The patient is a 63-year-old female, followed in the Pain Clinic because of chronic pain. As you recall, one of her main problems is that of mid and upper back pain. She states she has had some disk disease in the thoracic area as well as in the lumbar area, she continues to have problems with this. She was dusting. Her grandson who weighs 32 pounds climbed on her back. She encouraged him to get off, he continued to find it amusing and all of his activity has increased her low back pain and discomfort. She has had SI joint injections in the past as well as injections in the mid back area. She states that her dentists/surgeons are willing to perform surgery on her jaw. As you recall, she did have a bone problem. Portion of her rib was placed in her jaw. That, over the years, has continued to grow. She has a very limited ability to open her mouth. Her surgeons have stated they would be willing to perform another surgery to help with her jaw problem. It will be two surgeries lasting 10-12 hours. They have required that she stop smoking. She has started Chantix. She is still smoking at this point. She rates her pain as a 7/10. ALLERGIES: PENICILLIN, CEPHALEXIN. MEDICATIONS: Baclofen 10 mg p.o. t.i.d., temazepam 50 mg at bedtime, Dulcolax 5 mg, Zyrtec 10 mg, Cymbalta 30 mg, Boniva 150 mg monthly, Combivent for shortness of breath, lisinopril 20 mg, Amitiza 24 mcg b.i.d., Naprosyn 50 mg b.i.d., Zofran, oxycodone 5 mg q.i.d., OxyContin 20 mg b.i.d. PAIN CLINIC ASSESSMENT AND PQRS: 1. The patient is not being treated for rheumatoid arthritis. She does have some osteoarthritic changes. She has problem with her back. She has had a right knee replacement. She has some problems with her jaw. 2. Height 5 feet 2 inches, weight 141 pounds, BMI is 25. 3. Vital signs: Blood pressure 141/85, heart rate 75, respiratory rate 16, room air saturation 95%, temperature 85.5. 4. Pain intensity: 7.5/10 5. Fall history: The patient has not fallen in the last 3 months. 6. Blood thinner: The patient is on a blood thinning medication. 7. Hypertension: The patient is being treated for hypertension. 8. Opioids greater than 6 weeks: The [place] [address] PAIN MANAGEMENT CONSULTATION Name: SONJA GARCÍA BHAVNA Room: [facility]#: [id number] Admission: 03/06/19 Attend Phys: Dustin Syed MD Discharge: Date of : 56 Report #: [id number] source from Pain Clinic. 9. Risk assessment tool: Low for opioid use. 10. Functional assessment tool. 11. Recreational drug use: The patient denies use of recreational drugs. 12. Tobacco: The patient does smoke cigarettes. She has a smoking history of 50 years. She is smoking three-quarters of a pack of cigarettes per day. She has recently started Chantix. 13. Alcohol: The patient denies use of alcoholic beverages. PHYSICAL EXAMINATION: GENERAL: The patient is a well-developed, well-nourished, white female. She appears her stated age. She is alert and oriented x 3. Her affect is appropriate. Speech is fluent. HEENT: Normocephalic, atraumatic. Extraocular eye muscles intact. Sclerae nonicteric. Mucous membranes are moist. NECK: Without adenopathy or JVD. LUNGS: Generally clear to auscultation. HEART: Regular rate. ABDOMEN: Nontender. Bowel sounds present. MUSCULOSKELETAL: Upper extremity muscle strength is judged to be 5/5 for the major muscle groups in the upper extremity. Lower extremity muscle strength is judged to be 5-/5 for the major muscle groups in the lower extremity. The patient complains of some pain in the mid thoracic area as well as pain in the lower portion of her back. She has pain and discomfort in the SI joint area. RECOMMENDATIONS: We discussed treatment options with the patient. The patient would like to undergo treatment for the mid back pain. She has a scheduled appointment with another doctor this morning. She is unable to stay to have the procedure done. She will return to the Pain Clinic, at which time we will evaluate her for back treatment. A script for her medications has been written for oxycodone 5 mg q.i.d., Roxicodone 5 mg, OxyContin 20 mg, temazepam 15 mg, baclofen 10 mg t.i.d. and Amitiza. She will call us if she has any concerns. We have discussed the use of opioid medications. The patient is aware that opioid medications can be helpful overall, but do have side effects, which include the possibility of tolerance as well as possibility of dependency. She feels her medications are working well. She keeps them in a controlled environment. She will call us if she has any concerns. She will follow up in the near future for additional treatment of her low back pain. By: [id number]. Zeke Syed MD /nt
== END ==
LOC: M.PC 02:22
DX: G89.29 Other chronic pain (principal); M54.6 Pain in thoracic spine; I10 Essential (primary) hypertension; F17.210 Nicotine dependence, cigarettes, uncomplicated; Z79.899 Other long term (current) drug therapy; Z88.0 Allergy status to penicillin; Z88.1 Allergy status to other antibiotic agents; Z79.891 Long term (current) use of opiate analgesic

== ENCOUNTER → 2019-04-10 | Outpatient (CLI) | payer MEDICARE, MEDICAID ==
--- NOTE | 2019-04-16 14:27 | PAINCON ---
[address] [address] PAIN MANAGEMENT CONSULTATION Name: SONJA GARCÍA BHAVNA Room: [facility] Frank.#: [id number] Admission: 04/10/19 Attend Phys: Dustin Syed MD Discharge: Date of : 57 Report #: [id number] THIS REPORT FOR: //name// CC: Dustin Kennedy DATE OF SERVICE: 04/10/2019 CHIEF COMPLAINT: Pain in the SI joints, left and right. HISTORY: The patient is a 63-year-old female who has been followed in the pain clinic. She returns today indicating that she has had some pain and discomfort in the lower portion of her back. She has a history of sacroiliac joint dysfunction. She has undergone epidural steroid injections and feels that she is having a reoccurrence of her SI joint pain. Denies any new bowel or bladder dysfunction. The pain is in the lower portion of her back increases with certain movements of her legs as well as when she is lying on her side. Pain is focused in the low back area near the left and right hip area. Rates her pain as an 8/10. She has not undergone surgery for her jaw. She will have to stop smoking before her surgeons will proceed with jaw surgery. She continues to smoke at this juncture. ALLERGIES: PENICILLIN, CEPHALEXIN. CURRENT MEDICATIONS: Bactrim 10 mg 1 p.o. t.i.d., temazepam 50 mg at bedtime, Dulcolax 5 mg, Zyrtec 10 mg, Cymbalta 30 mg, Boniva 150 mg monthly, Combivent for shortness of breath, lisinopril 20 mg, Amitiza 20 mg b.i.d., Naprosyn 50 mg b.i.d., Zofran, oxycodone 5 mg q.i.d., OxyContin 20 mg b.i.d. PAIN CLINIC ASSESSMENT/PQRS: 1. The patient is not being treated for rheumatoid arthritis. 2. She does have some osteoarthritic changes. These involve her back. She has had right knee replacement. Continues to have problems with limited movement of her jaw. 3. Height 5 feet 2 inches, weight 138 pounds, BMI is 25.6. 4. Vital Signs: Blood pressure 132/80, heart rate 92, respiratory rate 16, room air saturation 96%, temperature 98.1. 5. Pain intensity 7/10. 6. Fall history: The patient has not fallen in the last 3 months. 7. Blood thinner. The patient is not on a blood thinning medication. 8. Hypertension. The patient is being treated for hypertension. 9. Opioid greater than 6 weeks. The patient receives her medications from [facility] pain clinic. 10. Risk assessment tool, low for opioid use. 11. Functional assessment tool. 12. Recreational drug use. The patient continues to smoke cigarettes and has [address] [place] [address] PAIN MANAGEMENT CONSULTATION Name: NAVEED GARCÍACindi HUGGINS Room: [facility]#: [id number] Admission: 04/10/19 Attend Phys: Dustin Syed MD Discharge: Date of : 57 Report #: [id number] smoked for the last 50 years. She has tried Chantix and is trying to decrease smoking, so that she can have a jaw surgery. 13. Alcohol: The patient denies use of alcoholic beverages. PHYSICAL EXAMINATION: GENERAL: The patient is a well-developed, well-nourished white female. Appears her stated age. She is alert and oriented x 3. Her affect is appropriate. Speech is fluent. HEENT: Normocephalic, atraumatic. Extraocular eye muscles intact. The patient is unable to open her mouth because of the fusion, which is taking place in her jaw. NECK: Without adenopathy or JVD. LUNGS: Generally clear to auscultation. HEART: Rate regular. ABDOMEN: Nontender. Bowel sounds present. MUSCULOSKELETAL: Upper extremity muscle strength judged to be 5-/5 for the major muscle groups in the upper extremity. Lower extremity, the patient has some pain and discomfort in lower portion of her back. Left and right SI joint pain has experienced by the patient. Anterior Spring test is positive. The patient notes some increased pain in the SI joint. Davey sign was positive left and right. IMPRESSION: 1. Sacroiliac joint dysfunction. 2. 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 3. Axial back pain. 4. Chronic pain treated with complex medical management. 5. History of hepatitis C. The patient has been treated for this condition. 6. Opioid-induced constipation. RECOMMENDATIONS: We discussed treatment options with the patient. At this juncture, we will continue to provide the patient with her medications. A script for opioids has been provided to the patient help control her pain. She will also undergo an SI joint injection, left and right side because of SI joint dysfunction. Risks and benefits of the procedure, which could include but are not limited to infection, worsening of pain, joint damage, nerve damage, increased pain, no improvement in pain were discussed and the patient elects to proceed. PROCEDURE NOTE: The patient was taken to the procedure area. She was then assisted in getting on the examination table. Her back was sterilely prepped with a Betadine solution. The left SI joint area was identified. Fluoroscopy was used to orient the needle in the appropriate place. A 25-gauge needle was then used to numb the skin. Aspiration after SI joint placement was noted. Contrast dye was injected. There was no complication. A total of 40 mg [facility] [address] [place] [address] PAIN MANAGEMENT CONSULTATION Name: SONJA GARCÍA Room: [facility] Arroyo#: [id number] Admission: 04/10/19 Attend Phys: Dustin Syed MD Discharge: Date of : 57 Report #: [id number] Depo-Medrol was injected with 3 mL of 0.25% bupivacaine. The contralateral right side was treated in the like fashion. A 25-gauge needle was advanced into the right SI joint using fluoroscopy. After appropriate placement, a total of 40 mg Depo-Medrol was injected. Total of 3 mL of 0.25% bupivacaine was injected. The patient tolerated the procedure well. She remained in the Pain Clinic for an appropriate amount of time. She will follow up in the future as needed. We would like to thank you for letting us participate in her care. We hope she continues to improve. <ELECTRONICALLY SIGNED> By: Dustin Syed MD 04/16/19 1427 [id number]. Zeke Syed MD /nt
== END | disposition home or self-care (01) ==
LOC: M.PC 04:56
DX: M53.3 Sacrococcygeal disorders, not elsewhere classified (principal); G89.29 Other chronic pain; M54.9 Dorsalgia, unspecified; I10 Essential (primary) hypertension; F17.210 Nicotine dependence, cigarettes, uncomplicated; Z96.651 Presence of right artificial knee joint; Z88.0 Allergy status to penicillin; Z88.8 Allergy status to other drugs, medicaments and biological substances; Z79.891 Long term (current) use of opiate analgesic; Z98.890 Other specified postprocedural states; Z86.19 Personal history of other infectious and parasitic diseases; Z79.899 Other long term (current) drug therapy
CPT/HCPCS: G0260

== ENCOUNTER → 2019-05-01 | Outpatient (CLI) | payer MEDICARE, MEDICAID ==
--- NOTE | ~2019-05-01 | PAINCON ---
[address] [address] PAIN MANAGEMENT CONSULTATION Name: SONJA GARCÍA BHAVNA Room: [facility] Frank.#: [id number] Admission: 05/01/19 Attend Phys: Dustin Syed MD Discharge: Date of : 57 Report #: [id number] THIS REPORT FOR: //name// CC: Dustin Kennedy DATE OF SERVICE: 05/01/2019 CHIEF COMPLAINT: "The SI joint pain is better, still having pain in my right knee." HISTORY: The patient is a 63-year-old female who has been followed in the pain clinic. As you recall, she has pain in a number of joints. She underwent left and right sacroiliac joint injections at the last visit. She has gleaned benefits from that. She continues to have some pain and discomfort in her back and jaw. She has had a fusion of her jaw. She has had a rib placed because of bone loss. That rib graft has continued to grow. She has very little movement of her jaw. She has considered having surgery in the near future. She will be required to stop smoking. She has not been able to stop smoking at this juncture. ALLERGIES: PENICILLIN AND CEPHALEXIN. CURRENT MEDICATIONS: Bactrim 10 mg 1 p.o. t.i.d., temazepam 50 mg at bedtime, Dulcolax 5 mg, Zyrtec 10 mg, Cymbalta 30 mg. Boniva 150 mg daily, Combivent for shortness of breath, lisinopril 20 mg, Amitiza 20 mg b.i.d., Naprosyn 50 mg b.i.d., Zofran, oxycodone 5 q.i.d., OxyContin 20 mg b.i.d. PAIN CLINIC ASSESSMENT/PQRS: 1. The patient is not being treated for rheumatoid arthritis. She has some arthritic changes in her right knee and has had back surgery. 2. Height 5 feet 2 inches, weight is 131 pounds, BMI is 24. 3. VITAL SIGNS: Blood pressure 145/69, heart rate 85, respiratory rate 18, room air saturation is 95%. Temperature 98.8. Pain 6-1/2 out of 10. 4. Fall history: The patient has not fallen in the last 3 months. 5. Blood thinner. The patient is not on a blood thinning medication. 6. Hypertension. The patient is being treated for hypertension. 7. Opioid greater than 6 weeks. The [facility]. 8. Risk assessment tool, low for opioid use. 9. Functional assessment tool. 10. Recreational drug use. The patient denies. 11. Tobacco: The patient smokes 1-3/4 of a pack of cigarettes per day. 12. Alcohol. The patient denies frequent use of alcoholic beverages. PHYSICAL EXAMINATION: [address] [place] [address] PAIN MANAGEMENT CONSULTATION Name: SONJA GARCÍA Room: [facility]#: [id number] Admission: 05/01/19 Attend Phys: Dustin Syed MD Discharge: Date of : 57 Report #: [id number] GENERAL: The patient is well-developed, well-nourished white female. Appears her stated age. She is alert and oriented. NEUROPSYCHIATRY: Alert and oriented x 3. Her affect is appropriate. Speech is fluent. HEENT: Normocephalic, atraumatic. Extraocular eye muscles intact. Sclerae nonicteric. Mucous membranes are moist. The patient's jaw is immovable. It is frozen in place with limited opening of about half an inch to 3/4 of an inch. NECK: Without adenopathy or JVD. LUNGS: Clear to auscultation. HEART: Regular rate. ABDOMEN: Nontender. Bowel sounds present. MUSCULOSKELETAL: The patient's upper extremity 5-/5 for the major muscle groups in the upper extremity. Lower extremity, the patient has some pain that is radiating down to her low back. Has a history of sacroiliac joint dysfunction. This is improved after the injection. She has some lumbar radicular pain as well. IMPRESSION: 1. Improved sacroiliac joint dysfunction after bilateral SI joint injections. 2. 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 3. Axial back pain with history of lumbar radicular pain. 4. Chronic pain treated with complex medical management using opioids. 5. History of hepatitis C. The patient has been treated for this condition. 6. Opioid-induced constipation. RECOMMENDATIONS: We discussed treatment options with the patient. At this juncture, we will continue with her medications of Amitiza 24 mcg b.i.d., baclofen 10 mg t.i.d., Cymbalta 30 mg at bedtime, and temazepam 15 mg. The patient feels that she is about 30% improvement with her medications. The patient has had surgeries in the past. She did have some fentanyl patches in the past. They were 50 mcg. At the last visit when we performed the SI joint injections, we noticed the patient did have a 50 mcg patch on board. She states that she had it on for a while and that has had no problem with it. We explained to the patient that was a dangerous situation when she placed the fentanyl patch 50 mcg on in conjunction with her oxycodone and OxyContin medications. The patient has returned to additional 50 mcg patches to us. They were disposed off in the pain clinic with Dr. Syed as well as nurse, Rohan. We have explained to the patient that we will see her in consultation on a monthly basis at this juncture. Hopefully, she will be able to decrease the smoking. The hope is that she will be able to proceed with surgery to improve her jaw function. We would like to thank you for letting us participate in her care. She will return to the pain clinic for an epidural steroid injection in the future as needed. She noticed increased pain and discomfort after watching her [address] [place] [address] PAIN MANAGEMENT CONSULTATION Name: SONJA GARCÍA Room: [facility]#: [id number] Admission: 05/01/19 Attend Phys: Dustin Syed MD Discharge: Date of : 57 Report #: [id number] grandchildren for an additional amount of time and she continues to go to the pool on Saturdays and Sundays. This increased activity has exacerbated her discomfort. By: [id number]. Zeke Syed MD /nt
== END ==
LOC: M.PC 04:31
DX: M53.3 Sacrococcygeal disorders, not elsewhere classified (principal); M54.16 Radiculopathy, lumbar region; K59.03 Drug induced constipation; G89.29 Other chronic pain; Z79.899 Other long term (current) drug therapy; Z88.0 Allergy status to penicillin; Z88.8 Allergy status to other drugs, medicaments and biological substances; Z86.19 Personal history of other infectious and parasitic diseases

== ENCOUNTER → 2019-05-29 | Outpatient (CLI) | payer MEDICARE, MEDICAID ==
--- NOTE | ~2019-05-29 | PAINCON ---
[address] [address] PAIN MANAGEMENT CONSULTATION Name: RAQUELSONJA BHAVNA Room: [facility] NEEMA Arroyo#: [id number] Admission: 05/29/19 Attend Phys: Dustin Syed MD Discharge: Date of : 57 Report #: [id number] THIS REPORT FOR: //name// CC: Dustin Kennedy DPM DATE OF SERVICE: 05/29/2019 CHIEF COMPLAINT: Low back pain and jaw pain. HISTORY: The patient is a 63-year-old female who has been followed in the pain clinic. She has chronic pain in number of joints. She has had a left knee surgeries. Has had a right knee replacement. Has sacroiliac joint problems in the past. She finds that her medications have been helpful. She continues to use oxycodone to help control the pain. Feels that the Amitiza is helpful with bowel control. She continues to have difficulty opening her mouth secondary to her jaw problem. She had rib placed in her jaw a number of years ago that has continued to grow that has cause her jaw to be frozen in 1 position. She is contemplating surgery for this. Her surgeons have asked that she stop smoking prior to, during the procedure. The surgeries surgery and they are concerned about her healing. She has decreased smoking from 1-1/2 cigarettes to 3/4 of a pack of cigarettes per day at this juncture. Once she finishes smoking, she will then consider surgery on her jaw. ALLERGIES: PENICILLIN AND CEPHALEXIN. CURRENT MEDICATIONS: Bactrim 10 mg 1 p.o. t.i.d., temazepam 50 mg at bedtime, Dulcolax 5 mg, Zyrtec 10 mg, Cymbalta 30 mg, Boniva 150 mg, Combivent shortness of breath, lisinopril 20 mg, Amitiza 20 mg b.i.d., Naprosyn 50 mg b.i.d., Zofran, oxycodone 5 mg q.i.d., OxyContin 20 mg b.i.d. PAIN CLINIC ASSESSMENT/PQRS: 1. The patient is not being treated for rheumatoid arthritis. She has some osteoarthritic changes involving her right knee and has had back surgery. Also, has had surgeries on her left knee. Has problems with her jaw. 2. Height 5 feet 2 inches, weight 130 pounds, BMI is 24.0. 3. Vital signs: Blood pressure 130/76, heart rate 83, respiratory rate 16, room air saturation 95%, temperature 98.5. 4. Pain intensity 7.5/10. 5. Fall history: The patient has not fallen in the last 3 months. 6. Blood thinner. The patient is not on a blood thinning medication. 7. Hypertension. The patient is being treated for hypertension. 8. Opioids greater than 6 weeks. The patient [facility] her [facility]. 9. Risk assessment tool, [place] [address] PAIN MANAGEMENT CONSULTATION Name: SONJA GARCÍA Room: [facility]#: [id number] Admission: 05/29/19 Attend Phys: Dustin Syed MD Discharge: Date of : 57 Report #: [id number] 10. Functional assessment tool. 11. Recreational drug use. The patient denies. 12. Tobacco: The patient smokes 3/4 of pack of cigarettes per day. 13. Alcohol: The patient denies use of alcoholic beverages. PHYSICAL EXAMINATION: GENERAL: The patient is a well-developed, well-nourished, somewhat thin-appearing white female. Appears her stated age. She is alert and oriented x 3. Her affect is appropriate. Speech is fluent. HEENT: Normocephalic, atraumatic. Extraocular eye muscles intact. Sclerae nonicteric. Mucous membranes are moist. The patient's jaw is immovable, opens about 3/4 of an inch. NECK: Without adenopathy or JVD. LUNGS: Generally clear to auscultation. HEART: Regular rate. ABDOMEN: Nontender. Bowel sounds present. MUSCULOSKELETAL: Upper extremity muscle strength judged to be 5-/5 for the major muscle groups in the upper extremity. Lower extremity muscle strength judged to be 5/5 for the major muscles in the lower extremity. The patient has some problems with the sacroiliac junction. They are reasonably stable at this point. IMPRESSION: 1. Sacroiliac joint dysfunction, bilateral. 2. 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 3. Axial back pain and history of lumbar radicular pain. 4. Chronic pain treated with complex medications using opioids. 5. History of hepatitis C. The patient has been treated for this condition. 6. Opioid-induced constipation. RECOMMENDATIONS: We discussed treatment options with the patient. Again, we encouraged her to stop smoking. We discussed the problems with surgery given that the patient has a smoking history and the possibility of slow healing for jaw surgery. We will continue with her medications. A script for her medications of baclofen 10 mg 1 p.o. t.i.d., Cymbalta 30 mg at bedtime, Amitiza 60 mg 1 p.o. b.i.d., OxyContin 20 mg one p.o. b.i.d., OxyIR 1 p.o. q.i.d., and Restoril have all been written. The patient will continue with her medications. She will call us if she has any concerns. Again, we discussed the risks and benefits of opioid medications. The patient is aware that 70,000 people last year as a result of drug overdoses. She states that she has taken her medications as prescribed. She is not using fentanyl patches. The patient states that she is still tired because of watching her grandchildren. She keeps her medication in a guarded area given [place] [address] PAIN MANAGEMENT CONSULTATION Name: SONJA GARCÍA Room: [facility]#: [id number] Admission: 05/29/19 Attend Phys: Dustin Syed MD Discharge: Date of : 57 Report #: [id number] We would like to thank you for letting us participate in her care. We hope she continues to improve. By: [id number] Syed MD /NOAM
== END ==
LOC: M.PC 04:45
DX: M54.5 Low back pain (principal); G89.29 Other chronic pain; K59.03 Drug induced constipation; T40.2X5A Adverse effect of other opioids, initial encounter; Z79.891 Long term (current) use of opiate analgesic; Y92.89 Other specified places as the place of occurrence of the external cause

== ENCOUNTER → 2019-06-26 | Outpatient (CLI) | payer MEDICARE, MEDICAID ==
--- NOTE | ~2019-06-26 | PAINCON ---
[address] [address] PAIN MANAGEMENT CONSULTATION Name: SONJA GARCÍA BHAVNA Room: [facility] HERMELINDA Frank.#: [id number] Admission: 06/26/19 Attend Phys: Dustin Syed MD Discharge: Date of : 57 Report #: [id number] THIS REPORT FOR: //name// CC: Aguila Kennedy DPM DATE OF SERVICE: 06/26/2019 CHIEF COMPLAINT: Chronic back and jaw pain. HISTORY: The patient is a 63-year-old female who has been followed in the pain clinic. As you recall, she has a complaint of back wrist and arm pain. She also has difficulty with her jaw. As you may recall, she had a jaw surgery a number of years ago. The rib was placed in the jaw area has a frozen in position. There is about 1-2 cm that the patient is able to open her mouth. She has been contemplating surgery in the future. She has required to stop use of tobacco prior to the surgeries. At this point, she has not been able to stop her smoking. She continues to try to stop smoking. She has returned today for renewal of her medications. She finds that the medications continue to be helpful. She is still in a struggle to decrease the use of tobacco. ALLERGIES: PENICILLIN AND CEPHALEXIN. CURRENT MEDICATIONS: Bactrim 10 mg 1 p.o. t.i.d., temazepam 50 mg at bedtime, Dulcolax 5 mg, Zyrtec 10 mg, Cymbalta 30 mg, Boniva 150 mg, Combivent for shortness of breath, lisinopril 20 mg, Amitiza 20 mg b.i.d., Naprosyn mg b.i.d., Zofran, oxycodone 5 mg q.i.d., and OxyContin 20 mg b.i.d. PAIN CLINIC ASSESSMENT/PQRS: 1. The patient is not being treated for rheumatoid arthritis. She does have some osteoarthritic changes involving her knees, her back, and has had surgery on her jaw. 2. Height 5 feet 2 inches, weight 127 pounds, BMI is 23.3. 3. Vital signs: Blood pressure 116/56, heart rate 75, respiratory rate 16, room air saturation 94%, temperature 98.2. 4. Pain intensity 7.5/10. 5. Fall history: The patient has not fallen in the last 3 months. 6. Blood thinner. The patient is not on a blood thinning medication. 7. Hypertension. The patient is being treated for hypertension. 8. Opioids greater than 6 weeks. The patient receives medication for pain from [facility]. 9. Risk assessment tool, low for opioid use. 10. Functional assessment tool, low for opioid use. 11. Recreational drug use. The patient denies use of recreational drugs. 12. Tobacco: The patient smokes 3/4 [place] [address] PAIN MANAGEMENT CONSULTATION Name: SONJA GARCÍA Room: [facility]#: [id number] Admission: 06/26/19 Attend Phys: Dustin Syed MD Discharge: Date of : 57 Report #: [id number] 13. Alcohol: The patient denies use of alcoholic beverages. PHYSICAL EXAMINATION: GENERAL: The patient is a well-developed, well-nourished white female. Appears her stated age. She is alert and oriented x 3. Her affect is appropriate. Speech is fluent. HEENT: Normocephalic, atraumatic. Extraocular eye muscles. Sclerae nonicteric. Mucous membranes are moist. The patient's jaw is movable, opens 3/4 of an inch. NECK: Without adenopathy or JVD. LUNGS: Generally clear to auscultation. HEART: Regular rate. ABDOMEN: Nontender. Bowel sounds present. MUSCULOSKELETAL: Upper extremity muscle strength is judged to be 5/5 for the major muscle groups in the upper extremity. The patient has pain judged to be 5/5 for the lower extremity. She has some pain and discomfort in the area of the SI joint. IMPRESSION: 1. History of sacroiliac joint dysfunction, bilateral. 2. 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 3. Axial back pain and history of lumbar radicular pain. 4. Chronic pain treated with complex medical management using opioids. 5. History of hepatitis C. The patient has been treated for this condition. 6. Opioid-induced constipation. RECOMMENDATIONS: We discussed treatment options with the patient. At this juncture, we will continue with her medication use. She feels the medications are helpful. Continues to take the medications as prescribed. Again, the patient is aware that opioid medications can be problematic for some patients. The patient does not show any signs of opioid abuse or misused. We will continue with her medications. A script for Amitiza 24 mcg 1 p.o. b.i.d. has been written. The patient will also continue with the baclofen 10 mg 1 p.o. t.i.d. Cymbalta 30 mg 1 p.o. at bedtime has been written. The patient will also continue with the Roxicodone 5 mg 1 p.o. q.i.d. 120 tablets with Restoril 15 mg at bedtime p.r.n. for sleep, and OxyContin 20 mg one p.o. b.i.d., total of 60 tablets. We would like to thank you for letting us participate in her care. We hope she continues to improve. By: [id number]. Zeke Syed MD /NOAM
== END ==
LOC: M.PC 05:21
DX: M54.5 Low back pain (principal); R68.84 Jaw pain; G89.29 Other chronic pain; Z88.0 Allergy status to penicillin; Z88.1 Allergy status to other antibiotic agents; Z79.899 Other long term (current) drug therapy; Z79.891 Long term (current) use of opiate analgesic

== ENCOUNTER → 2019-07-24 | Outpatient (CLI) | payer MEDICARE, MEDICAID ==
[~2019-07-24] MED LIST changes: +ASPIR 8181 MG PO; +CALCIUM 600 +1 EAC1 PO; +VITAMIN D2000 UNIT PO
--- NOTE | 2019-08-06 09:09 | PAINCON ---
[address] [address] PAIN MANAGEMENT CONSULTATION Name: SONJA GARCÍA BHAVNA Room: [facility] NEEMA Arroyo#: [id number] Admission: 07/24/19 Attend Phys: Dustin Syed MD Discharge: Date of : 57 Report #: [id number] THIS REPORT FOR: //name// CC: Aguila Syed DATE OF SERVICE: 07/24/2019 CHIEF COMPLAINT: Here for medication renewal. HISTORY: The patient is a 63-year-old female who has returned to the pain clinic because of chronic pain involving her back as well as problems with her jaw. As you may recall, she has a history of difficulty with her jaw. She had jaw problems. A rib portion was removed and replaced in the jaw area to build up to the jaw bone. Since that time, her rib has continued to grow. She has lost movement in her jaw. In the future, she would like to undergo surgery to help with this. This requires she stop smoking. She has found it quite difficult and has not been able to stop smoking yet. Hopefully, in the future, she will be able to stop smoking and have surgery. She has returned today for renewal of her medication because of the chronic back pain. She has had no real changes since we saw her last. Has noted that there has been some increased pain secondary to the change in weather, which has been quite dynamic. Temperature has changed about 40 degrees in 1-2 days. Finds that the oxycodone is helpful in conjunction with the OxyContin. She would like to have her medications renewed. ALLERGIES: PENICILLIN, CEPHALEXIN. CURRENT MEDICATIONS: Bactrim 10 mg t.i.d., temazepam 50 mg at bedtime, Dulcolax 5 mg, Zyrtec 10 mg, Cymbalta 30 mg, Boniva 150 mg, Combivent for shortness of breath, lisinopril 20 mg, Amitiza 20 mg b.i.d., Naprosyn, Zofran, oxycodone 5 mg q.i.d., OxyContin 20 mg b.i.d. PAIN CLINIC ASSESSMENT AND PQRS: 1. The patient is not being treated for rheumatoid arthritis. She does have some arthritic changes involving her knees, back and has had surgery on her jaw. 2. Height 5 feet 2 inches, weight 138 pounds, BMI is 24. 3. Vital Signs: Blood pressure, blood pressure 133/70, heart rate 80, respiratory rate 16, room air saturation is 92%, temperature 98.8. 4. Pain intensity 6-1/2-7/10. 5. Fall history: The patient has not fallen in the last 3 months. 6. Blood thinner. The patient is not on a blood thinning medication. 7. Hypertension. The patient is being treated for hypertension. 8. Opioids greater than 6 weeks. The patient [facility]. 9. Risk assessment tool, [place] [address] PAIN MANAGEMENT CONSULTATION Name: SONJA GARCÍA BHAVNA Room: [facility] HERMELINDA Dina#: [id number] Admission: 07/24/19 Attend Phys: Dustin Syed MD Discharge: Date of : 57 Report #: [id number] 10. Functional assessment tool, low for opioid use. 11. Tobacco: The patient smokes 3/4 of a quarter of a pack of cigarettes per day and is trying to quit. 12. Alcohol. The patient denies use of alcoholic beverages. PHYSICAL EXAMINATION: GENERAL: The patient is a well-developed, well-nourished white female. Appears her stated age. She is alert and oriented x 3. Her affect is appropriate. Speech is fluent. HEENT: Normocephalic, atraumatic. Extraocular eye muscles intact. Sclerae nonicteric. Mucous membranes are moist. The patient has a very limited mobility in her jaw. Opens about 3/4 of an inch. Smells of tobacco. NECK: Without adenopathy or JVD. LUNGS: Generally clear to auscultation. HEART: Regular rate. ABDOMEN: Nontender. Bowel sounds present. MUSCULOSKELETAL: Upper extremity muscle strength judged to be 5/5 for the major muscle groups 5-/5 for the major muscle groups in the upper extremity. The patient has pain in the lower portion of her back with pain with muscle strength to the lower extremities 5-/5. The patient has some discomfort in the area of her SI joint. IMPRESSION: 1. History of sacroiliac joint dysfunction bilaterally. 2. 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 3. Axial back pain and history of lumbar radicular pain. 4. Chronic pain, treated with complex medical management using opioids. 5. History of hepatitis C. The patient has been treated for this condition. 6. Opioid-induced constipation. RECOMMENDATIONS: We discussed treatment options with the patient at this point. We will continue with her current medical regimen. She is aware that opioid medications can be problematic in certain patients. She feels medications are helpful. She has taken the medication as prescribed. She is still working on decreasing her tobacco use, so that she consider surgery to help free up her jaw. A script for her medications of OxyContin 20 mg one p.o. b.i.d. has been written. She will also continue with Amitiza 24 mcg b.i.d., total of 60 tablets. The patient will also use Roxicodone 5 mg 1 p.o. t.i.d. We would like to thank you for letting us participate in her care. We hope she continues to improve. <ELECTRONICALLY SIGNED> By: Dustin Syed MD 08/06/19 [id number]. Zeke Syed MD /nt
== END ==
LOC: M.PC 05:58
DX: Z76.0 Encounter for issue of repeat prescription (principal); G89.29 Other chronic pain; I10 Essential (primary) hypertension; Z79.891 Long term (current) use of opiate analgesic; Z79.899 Other long term (current) drug therapy; Z86.19 Personal history of other infectious and parasitic diseases

== ENCOUNTER → 2019-08-21 | Outpatient (CLI) | payer MEDICARE, MEDICAID ==
--- NOTE | 2019-08-26 10:01 | PAINCON ---
[address] [address] PAIN MANAGEMENT CONSULTATION Name: SONJA GARCÍA Room: [facility].Sindi.#: [id number] Admission: 08/21/19 Attend Phys: Dustin Syed MD Discharge: Date of : 57 Report #: [id number] THIS REPORT FOR: //name// CC: Aguila Syed DATE OF SERVICE: 08/21/2019 CHIEF COMPLAINT: Here for medication renewal. HISTORY OF PRESENT ILLNESS: The patient is a 63-year-old female who has been followed in the pain clinic because of mid and low back pain. She also has some problem with her jaw. She has noticed that the cold changes in the weather have affected her. Her pain levels have increased. She rates her pain as 7-1/2 out of 10. She does continue to have some difficulty with her jaw. She had a portion of her jaw removed and replaced to rebuild her jaw bone. This has continued to grow. She has lost movement in her jaw. She has a very limited ability to open her mouth. She is considering surgery. Her physicians have required that she stop smoking. She continues to work in that direction. ALLERGIES: PENICILLIN AND CEPHALEXIN. CURRENT MEDICATIONS: Bactrim 10 mg 1 p.o. t.i.d., temazepam 50 mg at bedtime, Dulcolax 5 mg, Zyrtec 10 mg, Cymbalta 30 mg, Boniva 150 mg, Combivent for shortness of breath, lisinopril 20 mg, Amitiza 20 mg b.i.d., Naprosyn, Zofran, oxycodone 5 mg q.i.d. and OxyContin 20 mg b.i.d. PAIN CLINIC ASSESSMENT AND PQRS: 1. The patient is not being treated for rheumatoid arthritis. She does have some arthritic changes involving her knees, back and has had jaw surgery. 2. Height 5 feet 2 inches, weight 134 pounds, BMI is 24. 3. Vital signs: Blood pressure 106/46, heart rate 77, respiratory rate 16, room air saturation 95% and temperature 98.5. 4. Pain intensity, 7-1/2 out of 10. 5. Fall history: The patient has not fallen in the last 3 months. 6. Blood thinner. The patient is not on a blood-thinning medication. 7. Hypertension. The patient is being treated for hypertension. 8. Opioids greater than 6 weeks. The patient has received medications from [facility], the pain clinic. 9. Risk assessment tool, low. 10. Functional assessment tool, low for opioid use. 11. Tobacco: The patient does smoke 3/4 of pack of cigarettes per day and has continued to smoke. She is trying to decrease and stop smoking, so that she can undergo surgery on her jaw. 12. Alcohol: The patient denies [place] [address] PAIN MANAGEMENT CONSULTATION Name: RAQUELSONJA Room: [facility] Dina#: [id number] Admission: 08/21/19 Attend Phys: Dustin Syed MD Discharge: Date of : 57 Report #: [id number] PHYSICAL EXAMINATION: GENERAL: The patient is a well-developed, well-nourished white female. Appears her stated age. She is alert and oriented x 3. Her affect is appropriate. Speech is fluent. HEENT: Normocephalic, atraumatic. Extraocular eye muscles intact. Sclerae nonicteric. Mucous membranes moist. The patient has a little mobility of her jaw. She is only able to open it about 3/4 of an inch. She continues to smell of tobacco. NECK: Without adenopathy or JVD. LUNGS: Generally clear. HEART: Regular rate. ABDOMEN: Nontender. Bowel sounds present. MUSCULOSKELETAL: Upper extremity muscle strength judged to be 5/5 for the major muscle groups in the upper extremity and 5-/5 for the major muscle groups in the lower extremity. The patient has some pain and discomfort in lower back as well as some discomfort in her SI joints. IMPRESSION: 1. History of sacroiliac joint dysfunction. 2. 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 3. Axial back pain and history of lumbar radicular pain. 4. Chronic pain treated with complex medical management using opioids. 5. History of hepatitis C. The patient has been treated for this condition. 6. Opioid-induced constipation. RECOMMENDATIONS: We discussed treatment options with the patient. At this juncture, we will continue with her medications. She feels that the medications are helpful. A script for her medications of oxycodone 5 mg 1 p.o. t.i.d. to q.i.d. have been written. The patient will also continue with Amitiza to help with the constipation. She will continue with the temazepam to help with sleep at night. A muscle relaxant, baclofen has been provided as well. The patient feels that her pain is about 35% improved with her current medical regimen. She feels that this medication continue to make her life more palatable. She is aware that opioid medications can become less effective over time secondary to development of tolerance. A script for her medications has been rewritten. She will follow up in the near future. She will call us if she has any concerns. We would like to thank you for letting us participate in her care. We hope she continues to improve. <ELECTRONICALLY SIGNED> By: Dustin Syed MD 08/26/19 [id number] [id number]. Zeke Syed MD /nt
== END ==
LOC: M.PC 05:27
DX: Z76.0 Encounter for issue of repeat prescription (principal); G89.29 Other chronic pain; M54.16 Radiculopathy, lumbar region; Z88.0 Allergy status to penicillin; Z88.1 Allergy status to other antibiotic agents; Z79.899 Other long term (current) drug therapy; Z79.891 Long term (current) use of opiate analgesic; Z86.19 Personal history of other infectious and parasitic diseases

== ENCOUNTER → 2019-09-18 | Outpatient (CLI) | payer MEDICARE, MEDICAID ==
--- NOTE | ~2019-09-18 | PAINCON ---
[address] [address] PAIN MANAGEMENT CONSULTATION Name: RAQUELSONJA ANN Room: [facility] NEEMA Arroyo#: [id number] Admission: 09/18/19 Attend Phys: Dustin Syed MD Discharge: Date of : 57 Report #: [id number] THIS REPORT FOR: //name// CC: Aguila Syed DATE OF SERVICE: 09/18/2019 CHIEF COMPLAINT: "I recently had a birthday and things are going pretty well. HISTORY: The patient is a 64-year-old female who has been followed in the Pain Clinic. She has a history of chronic pain. She has [id number] pain involving her knees. She has had a knee replacement on the right side. Also, has some arthritic changes in her jaw. As you may recall, she had surgery on her jaw. A portion of a rib was placed in the jaw. This has continued to grow. Her jaw has been stationary and lacks movement. She is contemplating surgery in the future. She is required to stop smoking prior to the jaw surgery. She has been unable to stop smoking at this point. She feels that her pain is a 7/10 at this point. Has noted some increased pain and discomfort in her knees because of going up and down stairs at her daughter's house. She feels overall that things are going reasonably well. She does not have any problem with her medications. ALLERGIES: PENICILLIN AND CEPHALEXIN. CURRENT MEDICATIONS: Bactrim 10 mg 1 p.o. t.i.d., temazepam 50 mg at bedtime, Dulcolax 5 mg, Zyrtec 10 mg, Cymbalta 30 mg, Boniva 150 mg, Combivent for shortness of breath, lisinopril 20 mg, Amitiza ____ mg b.i.d., Naprosyn, Zofran, oxycodone 5 mg, and OxyContin 20 mg b.i.d. PAIN CLINIC ASSESSMENT AND PQRS: 1. The patient is not being treated for rheumatoid arthritis. She does have some arthritic changes involving her knees. She has had a right knee replacement. Has arthritic changes in her jaw. 2. Vital Signs: Blood pressure is 137/85, heart rate 81, respiratory rate 18, and room air saturation 98%. 3. Pain intensity is 7/10. 4. Height 5 feet 1 inch, weight 131 pounds, and BMI is 24.9. 5. Fall history: The patient has not fallen in the last 3 months. 6. Blood thinner. The patient is not on a blood thinning medication. 7. Hypertension. The patient is being treated for hypertension. 8. Opioids greater than 6 weeks. The patient [facility]. 9. Risk assessment tool, low for opioid use. 10. Functional assessment tool. This has been reviewed. 11. Tobacco: The patient smokes 3/4 of pack of cigarettes per day. She is trying to decrease her smoking to [place] [address] PAIN MANAGEMENT CONSULTATION Name: SONJA GARCÍA Room: [facility]#: [id number] Admission: 09/18/19 Attend Phys: Dustin Syed MD Discharge: Date of : 57 Report #: [id number] 12. Alcohol. The patient denies use of alcoholic beverages. PHYSICAL EXAMINATION: GENERAL: The patient is a well-developed, well-nourished white female. Appears her stated age. She is alert and oriented x 3. Her affect is appropriate. Speech is fluent. HEENT: Normocephalic, atraumatic. Extraocular eye muscles intact. Sclerae nonicteric. Mucous membranes are moist. NECK: Without adenopathy or JVD. The patient has limited function and movement in her jaw. Opens about 3/4 of an inch. LUNGS: Clear to auscultation. The patient does have a cough. HEART: Regular rate. ABDOMEN: Nontender. Bowel sounds present. MUSCULOSKELETAL: Upper extremity muscle strength judged to be 5/5 for the major muscle groups in the upper extremity. Lower extremity muscle strength 5-/5 with pain in her knees. The patient has pain in the lower portion of her back as well. Has had some discomfort in the SI joints. IMPRESSION: 1. History of sacroiliac joint dysfunction. 2. 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 3. Axial back pain. 4. History of lumbar radicular pain. 5. Chronic complex pain medication using opioids. 6. History of hepatitis C. The patient has been treated for this condition. 7. Opioid-induced constipation. RECOMMENDATIONS: We discussed treatment options with the patient. At this juncture, we will continue with the medication. She feels the medications are helpful. She is taking them as prescribed. She is not having any problems with thinking. She is aware that opioid medications can be less effective over time. She is aware that opioid medications are problematic. A 70,000 people as a result of overmedication last year. Keeps her medications in a guarded area. She is trying to decrease her use of tobacco. She hopes to undergo jaw surgery in the near future. She is currently using Levaquin because of bronchitis. She has recently undergone EGD and colonoscopy. She is awaiting her results. Recently had a birthday and feels reasonably good about how things are going. We would like to thank you for letting us participate in her care. We hope she continues to improve. By: [id number]. Zeke Syed MD /nt
== END ==
LOC: M.PC 04:56
DX: M54.9 Dorsalgia, unspecified (principal); M54.16 Radiculopathy, lumbar region; G89.4 Chronic pain syndrome; K59.03 Drug induced constipation; T40.2X5A Adverse effect of other opioids, initial encounter; Y92.89 Other specified places as the place of occurrence of the external cause

== ENCOUNTER → 2019-10-21 | Outpatient (CLI) | payer MEDICARE, MEDICAID ==
--- NOTE | ~2019-10-21 | PAINCON ---
[address] [address] PAIN MANAGEMENT CONSULTATION Name: RAQUELSONJA BHAVNA Room: [facility] Marie.#: [id number] Admission: 10/21/19 Attend Phys: Dustin Syed MD Discharge: Date of : 57 Report #: [id number] THIS REPORT FOR: //name// CC: Aguila Syed DATE OF SERVICE: 10/21/2019 CHIEF COMPLAINT: "I just got out of the hospital. I had pancolitis again. I have been on IV antibiotics." HISTORY OF PRESENT ILLNESS: The patient is a 64-year-old female who has been followed in the pain clinic because of chronic pain. She has had knee replacement on the right side. She has also had some problems with sacroiliac joint dysfunction. Lumbar radicular pain has been problematic, but stable at this juncture. Finds that use of her complex medical management using opioids is helpful. As you may recall, she has a fused jaw. This was status post transplantation of a rib. It continues to be frozen in place. She has the option of surgery in the future when she stops smoking. She has not stopped smoking at this juncture. She states that she was hospitalized because of pancolitis. She has had that in the past, but this is worse. She is on an additional 9 days of antibiotics. She was hospitalized and was receiving IV antibiotics. She returns today with the hopes of having her medications renewed. She has not had any problems with the medications in the past. ALLERGIES: PENICILLIN, CEPHALEXIN. CURRENT MEDICATIONS: Temazepam 15 mg at bedtime, Dulcolax 5 mg, Zyrtec 10 mg, Cymbalta 30 mg, Boniva 150 mg, Combivent for shortness of breath, lisinopril 20 mg, Amitiza, Naprosyn, Zofran, oxycodone 5 mg, and OxyContin 20 mg b.i.d. PAIN CLINIC ASSESSMENT AND PQRS: 1. The patient is not being treated for rheumatoid arthritis. She does have some osteoarthritic changes involving her knee. She has had a right knee replacement. She has arthritic changes in her jaw with inability to move her jaw. 2. Height 5 feet 2 inches, weight 135 pounds, BMI is 24.7. 3. Vital Signs: Blood pressure 137/82, heart rate 81, respiratory rate 16, room air saturation 97%, and temperature 98.8. 4. Pain intensity: 8/10. 5. Fall history: The patient has not fallen in the last 3 months. 6. Blood thinner. The patient is not on a blood thinning medication. 7. Hypertension. The patient is being treated for hypertension. 8. Opioids greater than 6 weeks: The patient receives medication from [facility] [place] [address] PAIN MANAGEMENT CONSULTATION Name: SONJA GARCÍA BHAVNA Room: [facility] Dina#: [id number] Admission: 10/21/19 Attend Phys: Dustin Syed MD Discharge: Date of : 57 Report #: [id number] 9. Risk assessment tool: Low for opioid use. 10. Functional assessment tool: This has been reviewed. 11. Tobacco: The patient smokes 3/4 of a pack of cigarettes per day. She is trying to decrease the smoking in an effort to undergo surgery for jaw immobility. 12. Alcohol: The patient denies frequent use of alcoholic beverages. PHYSICAL EXAMINATION: GENERAL: The patient is a well-developed, well-nourished white female. Appears her stated age. She is alert and oriented x 3. Her affect is appropriate. Speech is fluent. HEENT: Normocephalic, atraumatic. Extraocular eye muscles intact. Sclerae are nonicteric. Mucous membranes are moist. The patient has an inability to open her jaw. She has limited it to about 3/4 of an inch. LUNGS: Clear to auscultation. The patient does cough. HEART: Regular rate. ABDOMEN: Nontender. Bowel sounds present. MUSCULOSKELETAL: Upper extremity muscle strength judged to be 5-/5 for the major muscle groups. Lower extremity muscle strength is 5-/5. The patient does have pain in her knee. Has some discomfort in the area of the SI joints and low back area. IMPRESSION: 1. Recent hospitalization because of pancolitis. 2. Fused jaw after rib transplantation with an inability to move the jaw greater than 3 quarters of an inch. 2. Axial back pain. 3. History of lumbar radicular pain. 4. Chronic complex use of pain medication with opioids. 5. History of hepatitis C. The patient has been treated for this. 6. Opioid-induced constipation. 7. Recent urinary tract infection. 8. Past sepsis. 9. Iliac artery stenosis, bilateral. 10. Pyelonephritis. 11. Hypertension. RECOMMENDATIONS: We discussed treatment options with the patient. At this juncture, she feels that her medications are helpful. She is aware that opioid medications can become less effective as time goes on. She and I have had discussion with the limitations of opioid medications. She will continue with Restoril 15 mg at bedtime. She will use OxyContin 20 mg one p.o. b.i.d. This is for long-term pain control. She will also use oxycodone 5 mg one p.o. q.i.d. to help with the pain. The patient has been provided baclofen 10 mg one p.o. t.i.d. She will also continue with Cymbalta 30 mg at bedtime. The patient feels that the Amitiza is helpful with bowel and [place] [address] PAIN MANAGEMENT CONSULTATION Name: SONJA GARCÍA BHAVNA [id number] Admission: 10/21/19 Attend Phys: Dustin Syed MD Discharge: Date of : 57 Report #: [id number] will call us if she has any concerns. She will continue with the remainder of her antibiotic. She is to call and follow up with her primary should she note that her condition fails to improve. We would like to thank you for letting us participate in her care. We hope she continues to improve. By: [id number]. Zeke Syed MD /bhakti
== END ==
LOC: M.PC 09:40
DX: G89.29 Other chronic pain (principal); Z96.651 Presence of right artificial knee joint; Z79.899 Other long term (current) drug therapy; Z79.891 Long term (current) use of opiate analgesic; Z88.0 Allergy status to penicillin; Z88.8 Allergy status to other drugs, medicaments and biological substances

== ENCOUNTER → 2019-11-18 | Outpatient (CLI) | payer MEDICARE, MEDICAID ==
--- NOTE | ~2019-11-18 | PAINCON ---
[address] [address] PAIN MANAGEMENT CONSULTATION Name: SONJA GARCÍA Room: [facility] Vásquez.Sindi.#: [id number] Admission: 11/18/19 Attend Phys: Dustin Syed MD Discharge: Date of : 57 Report #: [id number] THIS REPORT FOR: //name// cc: Aguila Herron MD, Dean L. MD ~ THIS REPORT FOR: //name// CC: Aguila Syed DATE OF SERVICE: 11/18/2019 CHIEF COMPLAINT: "I have had some bleeding in my bowel movement." HISTORY OF PRESENT ILLNESS: The patient is a 64-year-old female who has been followed in the pain clinic because of chronic low back pain. She states that she has been followed up by her GI doctors. She is still seeing some bleeding on the toilet paper. She states that she did have blood drawn and that she was not anemic at this juncture. She has a history of colitis. She has been treated for sinus infections. She has reported blood from the rectal area over the past 2 days. She states that she has been seen by her GI doctor in the past for her upper GI and lower GI. This was last done in about August. She feels that her pain is a 7.5/10 today. It involves the low back area. She had a family member of lung cancer about 3 days ago. They live in [place]. ALLERGIES: PENICILLIN, CEPHALEXIN. CURRENT MEDICATIONS: Temazepam 15 mg at bedtime, Dulcolax 5 mg, Zyrtec 10 mg, Cymbalta 30 mg, Boniva 150 mg, Combivent, lisinopril 20 mg, Amitiza, Naprosyn, Zofran, oxycodone 5 mg, OxyContin 20 mg b.i.d. PAIN CLINIC ASSESSMENT/PQRS: 1. The patient is not being treated for rheumatoid arthritis. She does have some arthritic changes involving her knees. She has had a right knee replacement. She has some arthritic changes in her jaw with inability to move her jaw. 2. Height 5 feet 2 inches, weight 127 pounds, BMI is 23.3. 3. Vital signs: Blood pressure 122/68, heart rate 92, respiratory rate 18, room air saturation 96%, temperature 98.1. 4. Fall history: The patient has not fallen in the last 3 months. 5. Blood thinner. The patient is not on a blood thinning medication. 6. Hypertension. The patient is being treated for hypertension. 7. Opioids greater than 6 weeks. [place] [address] PAIN MANAGEMENT CONSULTATION Name: SONJA GARCÍA BHAVNA Room: [facility]#: [id number] Admission: 11/18/19 Attend Phys: Dustin Syed MD Discharge: Date of : 57 Report #: [id number]. 8. Risk assessment tool, low for opioid use. 9. Functional assessment tool has been reviewed. 10. Tobacco: The patient continues to smoke 3/4 of pack of cigarettes. She has been encouraged to stop smoking prior to surgery on her jaw. 11. Alcohol. The patient denies frequent use of alcoholic beverages. PHYSICAL EXAMINATION: GENERAL: The patient is a well-developed, well-nourished white female. Appears her stated age. She is alert and oriented x 3. Her affect is appropriate. Speech is fluent. HEENT: Normocephalic, atraumatic. Extraocular eye muscles intact. Sclerae nonicteric. Mucous membranes are moist. The patient has limited ability to open her mouth greater than about 3/4 of an inch. LUNGS: Generally clear. The patient does have some coughing and congestion. HEART: Regular rate. ABDOMEN: Nontender. Bowel sounds present. MUSCULOSKELETAL: Upper extremity muscle strength judged to be 5-/5 for the major muscle groups in the upper extremity. Lower extremity muscle strength 5-/5 for the major muscle groups in the lower extremity. The patient has pain in her knee, has some pain in the SI joints and low back area. IMPRESSION: 1. Recent finding of blood in the stool with some blood clots. 2. History of pancolitis. 3. 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 4. Axial back pain. 5. History of lumbar radicular pain. 6. Chronic pain treated with opioid. 7. History of hepatitis C. The patient states she has been treated for this. 8. Opioid-induced constipation. 9. Past history of sepsis. 10. Iliac artery stenosis, bilateral. 11. Hypertension. 12. Pyelonephritis history. RECOMMENDATIONS: We discussed treatment options with the patient. At this juncture, we will continue with the patient's medications. A script for her medications of oxycodone 20 mg one p.o. b.i.d. and Roxicodone 5 mg 1 p.o. q.i.d. has been rewritten. We have explained to the patient the seriousness of her smoking. The patient has been interviewed per our understanding by an ear, nose and throat doctor. They have required that she stop smoking prior to surgery. The patient is now showing some bleeding through the rectal area. We have explained to her the very difficult position she will be in should she need emergency surgery. As an anesthesiologist looking at her airway, [place] [address] PAIN MANAGEMENT CONSULTATION Name: SONJA GARCÍA Room: [facility] Dina#: [id number] Admission: 11/18/19 Attend Phys: Dustin Syed MD Discharge: Date of : 57 Report #: [id number] quite difficult to get an airway down into her trachea. Possibility of a nasal intubation might be problematic. The patient is getting over a sinus infection. She has been strongly encouraged to stop smoking immediately. She should stop smoking today and if she feels that she would undergo surgery at [facility], she should see the Anesthesia Department. Given her very difficult airway, all options should be made available should she emergently need to have surgery. Given that she is having some bleeding through her rectum, I think it would be murillo to stop smoking, follow up with her gastrointestinal doctors, anticipate the possible need for tracheostomy to perform general surgery. We would like to thank you for letting us participate in her care. A script for her medications has been provided. By: [id number]. Zeke Syed MD /nt
== END ==
LOC: M.PC 05:13
DX: M54.5 Low back pain (principal); G89.29 Other chronic pain; K59.00 Constipation, unspecified; T40.2X5A Adverse effect of other opioids, initial encounter; I77.1 Stricture of artery; I10 Essential (primary) hypertension; Z98.890 Other specified postprocedural states; Z88.0 Allergy status to penicillin; Z88.1 Allergy status to other antibiotic agents; Z79.891 Long term (current) use of opiate analgesic

== ENCOUNTER → 2019-12-18 | Outpatient (CLI) | payer MEDICARE, MEDICAID ==
[~2019-12-18] MED LIST changes: +BENTYL 10 MG CA10 M1 PO
== END ==
LOC: M.PC 04:46
DX: I70.8 Atherosclerosis of other arteries (principal); I10 Essential (primary) hypertension; K59.03 Drug induced constipation; M54.6 Pain in thoracic spine; G89.29 Other chronic pain

== ENCOUNTER → 2020-01-15 | Outpatient (CLI) | payer MEDICARE, MEDICAID ==
--- NOTE | ~2020-01-15 | PAINCON ---
[address] [address] PAIN MANAGEMENT CONSULTATION Name: SONJA GARCÍA Room: [facility]#: [id number] Admission: 01/15/20 Attend Phys: Dustin Syed MD Discharge: Date of : 57 Report #: [id number] THIS REPORT FOR: //name// cc: Aguila Herron MD, Dean L. MD ~ THIS REPORT FOR: //name// CC: Aguila Syed DATE OF SERVICE: 01/15/2020 CHIEF COMPLAINT: "Continued low back pain and I have a sinus infection, I am on an antibiotic." HISTORY: The patient is a 64-year-old female who has been followed in the Pain Clinic. She returns today for renewal of her medications. She is being treated for a sinus infection at this juncture. She rates her pain as an 8/10. She notes that cold weather as well as activities can increase her level of discomfort. She continues to smoke. She is trying to stop smoking so she could consider having jaw surgery in the future. Her lower jaw remains immovable. She has returned today for renewal of her medications. ALLERGIES: PENICILLIN AND CEPHALEXIN. CURRENT MEDICATIONS: Temazepam 15 mg at bedtime, Dulcolax 5 mg, Zyrtec 10 mg, Cymbalta 30 mg, Boniva 150 mg, Combivent, lisinopril 20 mg, Amitiza, Naprosyn, Zofran, oxycodone 5 mg, and OxyContin 20 mg b.i.d. PAIN CLINIC ASSESSMENT AND PQRS: 1. The patient is not being treated for rheumatoid arthritis. She does have some arthritic changes in her knees. She has discomfort in her right knee and has had a replacement. Has some arthritic problems with her jaw, which is immovable at this juncture. 2. Height 5 feet 2 inches, weight 132 pounds, BMI is 25. 3. Vital signs: Blood pressure is 114/78, heart rate 91, respiratory rate 16, room air saturation 99%, and temperature 98.9. 4. Pain intensity 8/10. 5. Fall history: The patient has not fallen in the last 3 months. 6. Blood thinner. The patient is not on a blood thinning medication. 7. Opioids greater than 6 weeks. The patient received medication from the Pain Clinic. 8. Recreational drug use. The patient denies use of recreational drugs. 9. Functional assessment tool, low for opioid use. 10. Functional assessment tool, reviewed. 11. Tobacco: The patient continues to smoke 3/4 of pack [place] [address] PAIN MANAGEMENT CONSULTATION Name: SONJA GARCÍA Room: [facility]#: [id number] Admission: 01/15/20 Attend Phys: Dustin Syed MD Discharge: Date of : 57 Report #: [id number] I have discussed the benefits of smoking cessation, particularly in lieu of the coronavirus pandemic. 12. Alcohol. The patient denies use of alcoholic beverages. PHYSICAL EXAMINATION: GENERAL: The patient is a well-developed, well-nourished white female. Appears her stated age. She is alert and oriented x 3. Her affect is appropriate. Speech is fluent. HEENT: Normocephalic, atraumatic. Extraocular eye muscles intact. Sclerae nonicteric. Mucous membranes are moist. The patient has inability to open her mouth more than 3 quarters of an inch. Her jaw is fixed in place. LUNGS: Generally clear. The patient has some congestion. HEART: Regular rate. ABDOMEN: Nontender. Bowel sounds present. The patient smells of tobacco. MUSCULOSKELETAL: Upper extremity muscle strength judged to be 5/5 for the major muscle groups in the upper extremity. Lower extremity, the patient has strength judged to be 5-/5. Has some pain in her knee. Has some pain in the low back area. IMPRESSION: 1. Recent sepsis and colitis, treated in hospital with ciprofloxacin. 2. 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 Opens about 3/4 of an inch. 3. Axial back pain. 4. History of lumbar radicular pain. 5. Chronic pain treated with opioids. 6. History of hepatitis C. The patient states she has been treated. 7. Opioid-induced constipation. 8. Past history of sepsis. 9. Iliac artery stenosis, bilateral. 10. Hypertension. 11. Pyelonephritis history. RECOMMENDATIONS: We discussed treatment options with the patient. We again encouraged the patient to decrease the use of tobacco. She is aware of the coronavirus, she is somewhat anxious about it. She would like to have her medications renewed. She rates her pain as an 8/10. A script for her medications have been provided. She is aware that opioid medications over time can become less effective because of development of tolerance. She is aware that some patients can develop addiction. She is not showing signs of addiction. She has taken the medication as prescribed. A script for baclofen 10 mg 1 p.o. t.i.d. has been provided. The patient will continue with Cymbalta 30 mg at bedtime. She will continue with her opioid medications, oxycodone 5 mg 1 p.o. q.i.d. a total of 120 tablets as well as OxyContin 20 mg one [place] [address] PAIN MANAGEMENT CONSULTATION Name: SONJA GARCÍA Room: [facility]#: [id number] Admission: 01/15/20 Attend Phys: Dustin Syed MD Discharge: Date of : 57 Report #: [id number] The patient will also continue with Restoril 15 mg at bedtime, total of 20 tablets for 30 days have been provided. By: [id number]. Zeke Syed MD /nt
== END ==
LOC: M.PC 01:27
DX: M54.5 Low back pain (principal); A41.89 Other specified sepsis; K52.9 Noninfective gastroenteritis and colitis, unspecified; J32.9 Chronic sinusitis, unspecified; F11.20 Opioid dependence, uncomplicated; I77.1 Stricture of artery; I10 Essential (primary) hypertension; Z87.39 Personal history of other diseases of the musculoskeletal system and connective tissue; Z87.442 Personal history of urinary calculi; Z88.0 Allergy status to penicillin; Z88.8 Allergy status to other drugs, medicaments and biological substances; Z79.899 Other long term (current) drug therapy

== ENCOUNTER → 2020-02-12 | Outpatient (CLI) | payer MEDICARE, MEDICAID ==
[~2020-02-12] MED LIST changes: +NARCAN4 MG NARES
--- NOTE | 2020-02-13 08:13 | PAINCON ---
[address] [address] PAIN MANAGEMENT CONSULTATION Name: SONJA GARCÍA Room: [facility]#: [id number] Admission: 02/12/20 Attend Phys: Dustin Syed MD Discharge: Date of : 57 Report #: [id number] THIS REPORT FOR: //name// cc: Aguila Herron MD, Dean L. MD ~ THIS REPORT FOR: //name// CC: Aguila Syed DATE OF SERVICE: 02/12/2020 CHIEF COMPLAINT: Continued low back pain. HISTORY: The patient is a 64-year-old female who has been followed in the pain clinic because of chronic back pain. She has rated her pain as a 7/10 today. She feels her pain is 40%-50% improved with use of her current medical regimen. She does have a sinus infection. She is followed by her physician. She tries to remain active. She does watch her grandchildren. She feels that her medications continue to make her activities of daily living tolerable. She continues to smoke. She still has immobility of her lower jaw. It remains immovable. She has not stopped smoking at this juncture. Smoking cessation is a requirement for her to undergo jaw surgery. ALLERGIES: PENICILLIN, CEPHALEXIN. CURRENT MEDICATIONS: Temazepam 15 mg at bedtime, Dulcolax 0.5 mg, Zyrtec 10 mg, Cymbalta 30 mg, Boniva 150 mg, Compazine, lisinopril 20 mg, Amitiza, Naprosyn, Zofran, oxycodone 5 mg, OxyContin 20 mg b.i.d. PAIN CLINIC ASSESSMENT AND PQRS: 1. The patient is not being treated for rheumatoid arthritis. She does have some arthritic changes in her knees. She has had a right knee replacement. She has arthritic changes in her jaw, which is immovable. 2. Height 5 feet 2 inches, weight 128 pounds, BMI is 23. 3. Vital Signs: Blood pressure 126/65, heart rate 93, respiratory rate 18, room air saturation is 98.4. 4. Pain intensity 7/10. 5. Fall history: The patient has not fallen since we saw her last. 6. Blood thinner. The patient is not on a blood thinning medication. 7. Hypertension. The patient is being treated for hypertension. 8. Opioids greater than 6 weeks. The patient received medication from one source the pain clinic. 9. Risk assessment tool, low for opioid use. 10. Functional assessment tool reviewed. 11. Recreational drug [place] [address] PAIN MANAGEMENT CONSULTATION Name: RAQUELSONJA Room: [facility]#: [id number] Admission: 02/12/20 Attend Phys: Dustin Syed MD Discharge: Date of : 57 Report #: [id number] 12. Tobacco: The patient continues to smoke. She smokes 3/4 of pack of cigarettes per day. 13. Alcohol. The patient denies use of alcoholic beverages. PHYSICAL EXAMINATION: GENERAL: The patient is a well-developed, well-nourished white female. Smells of tobacco. She is unaccompanied. Speech is fluent. HEENT: Extraocular eye muscles intact. Sclerae nonicteric. Mucous membranes are moist. The patient is edentulous in the lower jaw. Unable to open her mouth greater than 3/4 of an inch. The patient's jaw is fixed in place. LUNGS: Generally clear, but the patient does cough and has noticed some congestion. HEART: Regular rate. ABDOMEN: Nontender. Bowel sounds present. MUSCULOSKELETAL: Upper extremity muscle strength judged to be 5/5 for the major muscle groups in the upper extremity. Lower extremity muscle strength judged to be 5-/5 for the major muscle groups in the lower extremity. The patient has pain in the lower portion of her back. IMPRESSION: 1. Chronic low back pain. 2. Current sinus infection, which continues. 3. Axial back pain. 4. History of lumbar radicular pain. 5. Chronic pain treated with opioids. 6. History of hepatitis C. The patient states she has been treated. 7. Opioid-induced constipation. 8. Past history of sepsis. 9. Iliac artery stenosis, bilateral. 10. Hypertension. 11. History of pyelonephritis. RECOMMENDATIONS: We discussed treatment options with the patient. At this juncture, we will continue with her medications. She feels that they are beneficial. She is having no complications from their use. She continues to try to stay active. She does watch her grandchildren. We have provided the patient with Narcan should she have some respiratory depression or should her grandchildren get a hold off her medications and adjust them. She will use Narcan to reverse the effects. She is aware that smoking cessation would be in her best benefit. She is aware that the COVID-19 virus could be quite problematic given her respiratory history and might be problematic should she need intubation. We would like to thank you for letting us participate in her care. A script for oxycodone 5 mg 1 p.o. t.i.d./q.i.d., total of 120 tablets have been provided. The patient will also continue with oxycodone 20 mg one p.[place]. [place] [address] PAIN MANAGEMENT CONSULTATION Name: SONJA GARCÍA Room: [facility]#: [id number] Admission: 02/12/20 Attend Phys: Dustin Syed MD Discharge: Date of : 57 Report #: [id number] for Narcan 0.4 mg nasal spray has been provided. The patient will call us if she has any concerns. We would like to thank you for letting us participate in her care. We hope she continues to improve. <ELECTRONICALLY SIGNED> By: Dustin Syed MD 02/13/20 0813 [id number]. Zeke Syed MD /NOAM
== END ==
LOC: M.PC 04:04
DX: M54.5 Low back pain (principal); I10 Essential (primary) hypertension; I77.1 Stricture of artery; J01.90 Acute sinusitis, unspecified; F11.20 Opioid dependence, uncomplicated; Z86.19 Personal history of other infectious and parasitic diseases; G89.4 Chronic pain syndrome; Z87.39 Personal history of other diseases of the musculoskeletal system and connective tissue; Z87.448 Personal history of other diseases of urinary system; Z88.0 Allergy status to penicillin; Z88.8 Allergy status to other drugs, medicaments and biological substances; Z79.899 Other long term (current) drug therapy

== ENCOUNTER → 2020-03-11 | Outpatient (CLI) | payer MEDICARE, MEDICAID ==
--- NOTE | ~2020-03-11 | PAINCON ---
[address] [address] PAIN MANAGEMENT CONSULTATION Name: SONJA GARCÍA Room: [facility]#: [id number] Admission: 03/11/20 Attend Phys: Dustin Syed MD Discharge: Date of : 57 Report #: [id number] THIS REPORT FOR: //name// cc: Aguila Herron MD, Dean L. MD ~ THIS REPORT FOR: //name// CC: Aguila Syed DATE OF SERVICE: 03/11/2020 PRIMARY CARE PHYSICIAN: Aguila Herron MD CHIEF COMPLAINT: Still having low back pain. HISTORY: The patient is a 64-year-old female who has been followed in the pain clinic. She does suffer from chronic back pain. She has continued to note benefit from the current regimen. She rates her pain today as a 7/10. It involves the lower back as well as the right and left side. She is getting over a sinus infection. She did have some drainage, which remains. She tries to remain active. She is watching her grandchildren Sunday through Sunday. She feels that her medications are about 40% effective in keeping her pain under control. She has had no new changes. She has returned today for renewal of the medication. She feels that the ____ and oxycodone continue to be efficacious. She has not stopped smoking. Therefore, she has not been able to undergo surgery for her jaw. ALLERGIES: PENICILLIN AND CEPHALEXIN. CURRENT MEDICATIONS: Temazepam 15 mg at bedtime, Dulcolax 0.5 mg, Zyrtec 10 mg, Cymbalta 30 mg, Boniva 150 mg, Compazine, lisinopril 20 mg, Amitiza, Naprosyn, Zofran, oxycodone 5 mg, OxyContin 20 mg b.i.d. PAIN CLINIC ASSESSMENT AND PQRS: 1. The patient is not being treated for rheumatoid arthritis. She does have some arthritic changes in her knees. She has had a right knee replacement. She has arthritic changes in her jaw, which is immovable. Height 5 feet 2 inches, weight 134 pounds, BMI is 26.4. 2. Vital signs: Blood pressure is 159/72, heart rate 84, respiratory rate 16, room air saturation 96%, temperature 98.2. 3. Pain intensity is 7/10. 4. Fall history: The patient has not fallen in the last 3 months. 5. Blood thinner. The patient is not on a blood thinning medication. 6. Hypertension. The patient is being treated for hypertension. 7. Opioids greater than 6 weeks. The patient receives [place] [address] PAIN MANAGEMENT CONSULTATION Name: SONJA GARCÍA Room: [facility]#: [id number] Admission: 03/11/20 Attend Phys: Dustin Syed MD Discharge: Date of : 57 Report #: [id number] source, the pain clinic. 8. Risk assessment tool, low for opioids. 9. Functional assessment tool reviewed. 10. Recreational drug use. The patient denies. 11. Tobacco: The patient continues to smoke 3/4 of pack of cigarettes per day. 12. Alcohol. The patient denies use of alcoholic beverages. PHYSICAL EXAMINATION: GENERAL: The patient is a well-developed, well-nourished white female. Appears her stated age. HEENT: Extraocular eye muscles intact. Mucous membranes are moist. The patient is edentulous in the lower jaw. She is unable to open her mouth greater than 3 quarters of an inch. The patient has her jaw fixed in one position. LUNGS: Generally clear. The patient has some congestion with coughing. HEART: Regular rate. ABDOMEN: Nontender. Bowel sounds present. MUSCULOSKELETAL: Upper extremity muscle strength judged to be 5/5 for the major muscle groups in the upper extremity. Lower extremity muscle strength judged to be 5-/5 for the major muscle groups in the lower extremity. The patient has pain in her low back area. IMPRESSION: 1. Chronic pain in low back. 2. Chronic sinus infection. 3. Axial back pain. 4. History of lumbar radicular pain. 5. Chronic pain treated with opioids. 6. Hepatitis C. The patient states she has been treated. 7. Opioid-induced constipation. 8. Past history of sepsis. 9. Iliac artery stenosis, bilateral. 10. Hypertension. 11. History of pyelonephritis. RECOMMENDATIONS: We discussed treatment options with the patient. At this juncture, we will continue with her medications of oxycodone 5 mg 1 p.o. q.i.d. She will continue with OxyContin 20 mg one p.o. b.i.d. She finds that these medications are provider of 40% improvement in her overall pain. She is thinking clearly. She is not having any problems with the medications. She is monitoring her grandchildren. She keeps her medications in a guarded area. She has been provided with Narcan [place] [address] PAIN MANAGEMENT CONSULTATION Name: SONJA GARCÍA Room: [facility]#: [id number] Admission: 03/11/20 Attend Phys: Dustin Syed MD Discharge: Date of : 57 Report #: [id number] We would like to thank you for letting us participate in her care. We hope she continues to improve. By: [id number]. Zeke Syed MD /NOAM
== END ==
LOC: M.PC 04:21
DX: M54.5 Low back pain (principal); J32.9 Chronic sinusitis, unspecified; K59.00 Constipation, unspecified; B18.2 Chronic viral hepatitis C; I10 Essential (primary) hypertension; I77.1 Stricture of artery; F17.210 Nicotine dependence, cigarettes, uncomplicated; F11.20 Opioid dependence, uncomplicated; Z86.19 Personal history of other infectious and parasitic diseases; Z87.39 Personal history of other diseases of the musculoskeletal system and connective tissue; Z88.0 Allergy status to penicillin; Z88.8 Allergy status to other drugs, medicaments and biological substances; Z79.899 Other long term (current) drug therapy

== ENCOUNTER → 2020-04-08 | Outpatient (CLI) | payer MEDICARE, MEDICAID ==
[~2020-04-08] MED LIST changes: +OXYCODONE HCL E20 MG PO
--- NOTE | 2020-04-22 15:40 | PAINCON ---
[address] [address] PAIN MANAGEMENT CONSULTATION Name: SONJA GARCÍA Room: [facility]#: [id number] Admission: 04/08/20 Attend Phys: Dustin Syed MD Discharge: Date of : 57 Report #: [id number] THIS REPORT FOR: //name// cc: Aguila Herron MD, Dean L. MD ~ THIS REPORT FOR: //name// CC: Aguila Syed DATE OF SERVICE: 04/08/2020 CHIEF COMPLAINT: "Here for medication renewal and I am having some problems with urinary tract infection." HISTORY: The patient is a 64-year-old female who has been followed in the Pain Clinic because of lumbar radiculopathy. She has chronic back pain. She has noticed some problems with micturition. Notes that she has to go, but does not get very much result. She feels that she may have a urinary tract infection. She has noted some increased back discomfort. She has been moving and lifting a lot of heavy items. As a result of the increased activity, she has noticed worsening of her pain and discomfort. She feels that her medications are helpful. She would like to have her medications renewed. She has returned today for renewal of her medications. ALLERGIES: PENICILLIN AND CEPHALEXIN. CURRENT MEDICATIONS: Temazepam 15 mg at bedtime, Dulcolax, Zyrtec 10 mg, Cymbalta 30 mg, Boniva for 150 mg, Compazine, lisinopril 20 mg, Amitiza, Naprosyn, Zofran, oxycodone 5 mg, and OxyContin 20 mg b.i.d. PAIN CLINIC ASSESSMENT AND PQRS: 1. The patient is not being treated for rheumatoid arthritis. She does have some arthritic changes in her knees. She has had a right knee replacement. She has arthritic changes in her jaw, which is immovable. 2. Height 5 feet 2 inches, weight 136 pounds, BMI is 24.8. 3. Vital signs: Blood pressure 122/64, heart rate is 86, respiratory rate 16, room air saturation 92%, and temperature 98.8. 4. Pain intensity is 7-8/10. 5. Fall history: The patient has not fallen since we saw her last. 6. Blood thinner. The patient is not on a blood thinning medication. 7. Hypertension. The patient is being treated for hypertension. 8. Opioids greater than 6 weeks. The patient received medication from the Pain Clinic. 9. Risk assessment tool, moderate for opioid use. 10. Functional [place] [address] PAIN MANAGEMENT CONSULTATION Name: SONJA GARCÍA Room: [facility]#: [id number] Admission: 04/08/20 Attend Phys: Dustin Syed MD Discharge: Date of : 57 Report #: [id number] 11. Recreational drug use. The patient denies. 12. Tobacco: The patient continues to smoke 3/4 of pack of cigarettes per day. 13. Alcohol. The patient denies use of alcoholic beverages. PHYSICAL EXAMINATION: GENERAL: The patient is a well-developed, well-nourished white female. Appears her stated age. She is alert and oriented x 3. Her affect is appropriate. Speech is fluent. HEENT: Normocephalic, atraumatic. Extraocular eye muscles intact. The patient has an immovable lower jaw. It opens about 3/4 of an inch. It is in a fixed position. She is wearing a mask. LUNGS: Generally clear, sounds congestion. HEART: Regular rate. ABDOMEN: Nontender. Bowel sounds present. MUSCULOSKELETAL: The patient's muscle strength judged to be 5/5 for the major muscle groups in the upper extremity. Complains of some low back pain and discomfort with muscle spasms in the lower extremity. IMPRESSION: 1. Chronic low back pain. 2. Chronic sinus infection. 3. Axial back pain. 4. History of lumbar radiculopathy. 5. Probable urinary tract infection. 6. Chronic pain treated with opioids. 7. Hepatitis C -- the patient states that it has been treated. 8. Opioid-induced constipation. 9. Past history of sepsis. 10. Iliac artery stenosis, bilateral. 11. Hypertension. 12. History of pyelonephritis. RECOMMENDATIONS: We discussed treatment options with the patient. The patient states that she feels that she may have a urinary tract infection. We directed her to follow up with her primary physician in that regard. She has had history of pyelonephritis. We explained the possible complications, which could be infection, sepsis, loss of life. The patient states that she would follow up with them. We will continue with her current medications of oxycodone 5 mg 1 p.o. q.i.d. She will also continue with oxycodone 20 mg b.i.d. The patient has been provided a script for the next 2 months. She will call us if she has any concerns. We would like to thank you for letting us participate in her care. Again, we [address] [place] [address] PAIN MANAGEMENT CONSULTATION Name: SONJA GARCÍA Room: [facility]#: [id number] Admission: 04/08/20 Attend Phys: Dustin Syed MD Discharge: Date of : 57 Report #: [id number] explained to the patient the urgency of her to follow up with her primary physician because of the likely urinary tract infection. <ELECTRONICALLY SIGNED> By: Dustin Syed MD 04/22/20 1540 1104 1923N. Zeke Syed MD /nt
== END ==
LOC: M.PC 04:47
PROVIDERS: ATTEND Anesthesiology Pain Medicine
DX: M54.5 Low back pain (principal); G89.29 Other chronic pain; I10 Essential (primary) hypertension; M54.16 Radiculopathy, lumbar region; J32.9 Chronic sinusitis, unspecified; N12 Tubulo-interstitial nephritis, not specified as acute or chronic; A41.9 Sepsis, unspecified organism; Z87.898 Personal history of other specified conditions; F11.90 Opioid use, unspecified, uncomplicated

== ENCOUNTER → 2020-06-03 | Outpatient (CLI) | payer MEDICARE, MEDICAID ==
--- NOTE | 2020-06-04 13:41 | PAINCON ---
[address] [address] PAIN MANAGEMENT CONSULTATION Name: SONJA GARCÍA Room: [facility]#: [id number] Admission: 06/03/20 Attend Phys: Dustin Syed MD Discharge: Date of : 57 Report #: [id number] THIS REPORT FOR: //name// cc: Aguila Herron MD, Dean L. MD ~ THIS REPORT FOR: //name// CC: Aguila Syed DATE OF SERVICE: 06/03/2020 CHIEF COMPLAINT: "Here for medication renewal, things are going okay, but I am still having pain in my back down my butt and in both legs." HISTORY: The patient is a 64-year-old female who has been followed in the pain clinic because of history of lumbar radiculopathy. She also has chronic back pain that continues to be problematic. She has had 4 back fusions. She has pain in her knee as well. She has returned today for renewal of her medications. She rates her jaw pain as problematic. Has pain in both left as well as the right knee. Overall, she feels her pain is "holding steady." She sometimes noticed some shooting pain. She rates the pain as a 7-8/10. She has returned today for renewal of medications. ALLERGIES: PENICILLIN AND CEPHALEXIN. CURRENT MEDICATIONS: Temazepam 15 mg at bedtime, Dulcolax, Zyrtec 10 mg, Cymbalta 30 mg, Boniva 150 mg, Compazine, lisinopril 20 mg, Amitiza, Naprosyn, Zofran, oxycodone 5 mg q.i.d., OxyContin 20 mg b.i.d. PAIN CLINIC ASSESSMENT/PQRS: 1. The patient is not being treated for rheumatoid arthritis. She does have some arthritic changes in her knees. She has had a right knee replacement. She has some arthritic changes in her jaw, which caused it to be immovable. She has had 5 back surgeries. 2. Height 5 feet 2 inches, weight 138 pounds, BMI is 26.2. 3. Vital signs: Blood pressure 131/73, heart rate 80, respiratory rate 14, room air saturation 93%, temperature 98.8. 4. Pain intensity 7-8/10. 5. Fall history: The patient has not fallen since we saw her last. 6. Blood thinner: The patient is not on a blood thinning medication. 7. Hypertension: The patient is being treated for hypertension. 8. Opioids greater than 6 weeks: The patient receives medication from the pain clinic. 9. Risk assessment tool: Moderate for opioid use. 10. Functional assessment tool: [place] [address] PAIN MANAGEMENT CONSULTATION Name: SONJA GARCÍA Room: [facility]#: [id number] Admission: 06/03/20 Attend Phys: Dustin Syed MD Discharge: Date of : 57 Report #: [id number] 11. Recreational drug use: The patient denies. 12. Tobacco: The patient continues to smoke three-quarters of a pack of cigarettes per day. We have discussed the benefits of smoking cessation. 13. Alcohol: The patient denies use of alcoholic beverages. PHYSICAL EXAMINATION: GENERAL: The patient is a well-developed, well-nourished white female. Appears her stated age. She is alert and oriented x 3. Her affect is appropriate. Speech is fluent. HEENT: Normocephalic, atraumatic. Extraocular eye muscles intact. Sclerae nonicteric. Her lower jaw is immovable. It opens about 3/4 of an inch. It is fixed in position. She is wearing a mask. LUNGS: Generally clear. HEART: Regular. ABDOMEN: Nontender. Bowel sounds present. MUSCULOSKELETAL: Upper extremity muscle strength judged to be 5-/5 for the major muscle groups in the upper extremity. The patient complains of pain in the lower portion of her back and has pain that is radiating down into the lower portion of her back bilaterally in the buttocks. IMPRESSION: 1. Chronic low back pain. 2. Chronic sinus infections. 3. Axial back pain. 4. History of lumbar radiculopathy. 5. Chronic pain treated with opioid regimen. 6. History of hepatitis C. The patient states she has been treated. 7. Opioid-induced constipation. 8. History of sepsis. 9. Iliac artery stenosis, bilateral. 10. Hypertension. 11. History of pyelonephritis. RECOMMENDATIONS: We discussed treatment options with the patient. At this juncture, we will continue with her medications. A script for her medications has been supplied. She will continue with OxyContin 20 mg one p.o. b.i.d. She will also continue with Roxicodone 5 mg 1 p.o. q.i.d. She is aware that opioid medications can become less effective as time goes on because of development of tolerance. We would like to thank you for letting us participate in her care. We hope she continues to improve. <ELECTRONICALLY SIGNED> By: Dustin Syed MD 06/04/20 1341 [id number]. MD moni Murillo
== END ==
LOC: M.PC 08:20
PROVIDERS: ATTEND Anesthesiology Pain Medicine
DX: I10 Essential (primary) hypertension (principal); I70.203 Unspecified atherosclerosis of native arteries of extremities, bilateral legs; M54.5 Low back pain; M79.605 Pain in left leg; M79.604 Pain in right leg; K59.03 Drug induced constipation; T40.2X5A Adverse effect of other opioids, initial encounter

== ENCOUNTER → 2020-07-29 | Outpatient (CLI) | payer MEDICARE, MEDICAID ==
--- NOTE | ~2020-07-29 | PAINCON ---
[address] [address] PAIN MANAGEMENT CONSULTATION Name: SONJA GARCÍA Room: [facility]#: [id number] Admission: 07/29/20 Attend Phys: Dsutin Syed MD Discharge: Date of : 57 Report #: [id number] THIS REPORT FOR: //name// cc: Aguila Herron MD, Dean L. MD ~ THIS REPORT FOR: //name// CC: Aguila Syed DATE OF SERVICE: 07/29/2020 CHIEF COMPLAINT: Lower back pain and mid back pain. HISTORY: The patient is a 64-year-old female who has been followed in the pain clinic. She continues to have pain and discomfort, which is still problematic. She notes that the pain has increased because of the change in temperature. It has gotten colder outside. She does feel that her medications are helpful. She has been having some constant, shooting pain down the back side and into her right leg. She rates her pain today as a 7.5/10. She denies any new trauma. She continues to smoke. 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 ALLERGIES: PENICILLIN and CEPHALEXIN. CURRENT MEDICATIONS: Temazepam 15 mg at bedtime, Dulcolax, Zyrtec 10 mg, Cymbalta 30 mg, Boniva 150 mg, Compazine, lisinopril 20 mg, Amitiza, Naprosyn, Zofran, oxycodone 5/325 one p.o. q.i.d., OxyContin 20 mg b.i.d. PAIN CLINIC ASSESSMENT AND PQRS: 1. The patient is not being treated for rheumatoid arthritis. She does have some arthritic changes in her knees. She has had a right knee replacement. 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 She has had 5 back surgeries. 2. Height 5 feet 2 inches, weight 143 pounds, BMI is 27. 3. Vital Signs: Blood pressure 132/81, heart rate 76, respiratory rate 15, room air saturation is 94%. 4. Pain score: 7/10. 5. Fall history: The patient has not fallen since we saw her last. 6. Blood thinner: The patient is not on a blood thinning medication. 7. Hypertension: The patient is being treated for hypertension. 8. Opioids greater than 6 weeks: The patient received medication from the pain clinic. 9. Risk assessment tool: Moderate for opioid use. 10. Functional assessment tool: Reviewed. 11. Recreational drug use: [place] [address] PAIN MANAGEMENT CONSULTATION Name: SONJA GARCÍA Room: [facility]#: [id number] Admission: 07/29/20 Attend Phys: Dustin Syed MD Discharge: Date of : 57 Report #: [id number] 12. Tobacco: The patient continues to smoke 3/4 of pack of cigarettes per day. She is aware that she must stop smoking before she can have a jaw surgery. 13. Alcohol: The patient denies use of alcoholic beverages. PHYSICAL EXAMINATION: GENERAL: The patient is a well-developed, well-nourished white female. Appears her stated age. She is alert and oriented x 3. Her affect is appropriate. Speech is fluent. The patient is wearing a facial covering. The room smells of tobacco. HEENT: Normocephalic, atraumatic. Extraocular eye muscles are intact. Jaw is immovable. Opened to a level of about 3/4 of an inch. LUNGS: Generally clear. HEART: Regular rate. ABDOMEN: Nontender. Bowel sounds are present. MUSCULOSKELETAL: Upper extremity muscle strength judged to be 5-/5 for the major muscle groups in the upper extremity. The patient complains of pain in the lower portion of her back and pain that radiates down the lower portion of her legs and into the buttocks. IMPRESSION: 1. Chronic low back pain. 2. Chronic sinus infection history. 3. Axial back pain. 4. History of lumbar radiculopathy, status post 5 back surgeries. 5. History of hepatitis C. The patient states that this has been treated. 6. Opioid-induced constipation. 7. History of sepsis. 8. Iliac artery stenosis, bilateral. 9. Hypertension. 10. History of pyelonephritis. RECOMMENDATIONS: We discussed treatment options with the patient. At this juncture, we will continue with her medications. The patient is aware that the opioid medications can become less effective as time goes on. She feels that the medications continue to be helpful. She feels that her medications for stool softeners are working reasonably well. A script for baclofen for muscle spasm has been rewritten. The patient will also continue with oxycodone 20 mg one p.o. b.i.d. The patient will take the oxycodone 5 mg tablets p.r.n. for muscle pain and back pain. She has also been provided naloxone in the past for respiratory problems should the need arise. The patient will also continue with the Cymbalta 30 mg at bedtime. [place] [place] [address] PAIN MANAGEMENT CONSULTATION Name: SONJA GARCÍA Room: [facility]#: [id number] Admission: 07/29/20 Attend Phys: Dustin Syed MD Discharge: Date of : 57 Report #: [id number] We would like to thank you for letting us participate in her care. We hope she continues to improve. By: [id number]. Zeke Syed MD /nt
== END ==
LOC: M.PC 07:44
PROVIDERS: ATTEND Anesthesiology Pain Medicine
DX: M54.5 Low back pain (principal); G89.29 Other chronic pain; I10 Essential (primary) hypertension; Z79.891 Long term (current) use of opiate analgesic

== ENCOUNTER → 2020-08-06 | Outpatient (CLI) | payer MEDICARE, MEDICAID | LOC: M.ULTRA 13:30 | PROVIDERS: ATTEND Internal Medicine | DX: N20.0 Calculus of kidney (principal); N39.0 Urinary tract infection, site not specified ==

== ENCOUNTER → 2020-09-23 | Outpatient (CLI) | payer MEDICARE, MEDICAID | LOC: M.PC 07:36 | PROVIDERS: ATTEND Anesthesiology Pain Medicine | DX: M54.5 Low back pain (principal); G89.29 Other chronic pain; J32.8 Other chronic sinusitis; I70.203 Unspecified atherosclerosis of native arteries of extremities, bilateral legs; I10 Essential (primary) hypertension; Z87.891 Personal history of nicotine dependence; Z87.440 Personal history of urinary (tract) infections ==

== ENCOUNTER → 2020-11-18 | Outpatient (CLI) | payer OTHER, MEDICAID ==
[~2020-11-18] MED LIST changes: +XTAMPZA ER18 MG PO
== END ==
LOC: M.PC 07:37
PROVIDERS: ATTEND Anesthesiology Pain Medicine
DX: M54.5 Low back pain (principal); N39.0 Urinary tract infection, site not specified; I10 Essential (primary) hypertension; G89.29 Other chronic pain; K59.03 Drug induced constipation; M53.3 Sacrococcygeal disorders, not elsewhere classified; I77.1 Stricture of artery; Z87.39 Personal history of other diseases of the musculoskeletal system and connective tissue; Z86.19 Personal history of other infectious and parasitic diseases; Z87.448 Personal history of other diseases of urinary system

== ENCOUNTER → 2020-12-09 | Outpatient (CLI) | payer OTHER, MEDICAID | END | disposition home or self-care (01) | LOC: M.PC 11-25 08:30 | PROVIDERS: ATTEND Anesthesiology Pain Medicine | DX: M53.3 Sacrococcygeal disorders, not elsewhere classified (principal); M54.9 Dorsalgia, unspecified; M54.5 Low back pain; G89.29 Other chronic pain; I10 Essential (primary) hypertension; Z86.19 Personal history of other infectious and parasitic diseases; Z98.890 Other specified postprocedural states; Z79.899 Other long term (current) drug therapy; Z90.710 Acquired absence of both cervix and uterus; Z90.49 Acquired absence of other specified parts of digestive tract; Z88.0 Allergy status to penicillin; Z88.8 Allergy status to other drugs, medicaments and biological substances | CPT/HCPCS: G0260 ==

== ENCOUNTER → 2021-01-13 | Outpatient (CLI) | payer OTHER, MEDICAID | LOC: M.PC 07:56 | PROVIDERS: ATTEND Anesthesiology Pain Medicine | DX: M54.5 Low back pain (principal); G89.29 Other chronic pain; N39.0 Urinary tract infection, site not specified; K59.03 Drug induced constipation; I10 Essential (primary) hypertension; I77.1 Stricture of artery; Z87.39 Personal history of other diseases of the musculoskeletal system and connective tissue; Z87.448 Personal history of other diseases of urinary system; Z86.19 Personal history of other infectious and parasitic diseases; Z88.8 Allergy status to other drugs, medicaments and biological substances; Z79.899 Other long term (current) drug therapy ==

== ENCOUNTER → 2021-03-10 | Outpatient (CLI) | payer OTHER, MEDICAID ==
[~2021-03-10] MED LIST changes: +PRILOSEC OTC20 MG PO; -PRILOSEC2.5 MG; +ZETIA10 MG PO
== END ==
LOC: M.PC 07:54
PROVIDERS: ATTEND Anesthesiology Pain Medicine
DX: G89.29 Other chronic pain (principal); N39.0 Urinary tract infection, site not specified; M54.16 Radiculopathy, lumbar region; K59.03 Drug induced constipation; I70.8 Atherosclerosis of other arteries; I10 Essential (primary) hypertension; T40.2X5D Adverse effect of other opioids, subsequent encounter; Z86.19 Personal history of other infectious and parasitic diseases

== ENCOUNTER → 2021-05-05 | Outpatient (CLI) | payer OTHER, MEDICAID | LOC: M.PC 08:08 | PROVIDERS: ATTEND Anesthesiology Pain Medicine | DX: G89.29 Other chronic pain (principal); M54.5 Low back pain; N39.0 Urinary tract infection, site not specified; M54.16 Radiculopathy, lumbar region; K59.03 Drug induced constipation; I70.8 Atherosclerosis of other arteries; I10 Essential (primary) hypertension; T40.2X5D Adverse effect of other opioids, subsequent encounter; Z86.19 Personal history of other infectious and parasitic diseases ==

== ENCOUNTER → 2021-06-30 | Outpatient (CLI) | payer OTHER, MEDICAID | LOC: M.PC 08:19 | PROVIDERS: ATTEND Anesthesiology Pain Medicine | DX: G89.29 Other chronic pain (principal); M54.16 Radiculopathy, lumbar region; I10 Essential (primary) hypertension; I70.8 Atherosclerosis of other arteries; M41.80 Other forms of scoliosis, site unspecified; K59.09 Other constipation; M25.569 Pain in unspecified knee; Z88.8 Allergy status to other drugs, medicaments and biological substances; Z98.890 Other specified postprocedural states; Z79.82 Long term (current) use of aspirin; Z79.899 Other long term (current) drug therapy ==

== ENCOUNTER → 2021-08-25 | Outpatient (CLI) | payer OTHER, MEDICAID | LOC: M.PC 08:20 | PROVIDERS: ATTEND Anesthesiology Pain Medicine | DX: M54.16 Radiculopathy, lumbar region (principal); N39.0 Urinary tract infection, site not specified; K59.03 Drug induced constipation; I70.8 Atherosclerosis of other arteries; M25.569 Pain in unspecified knee; I10 Essential (primary) hypertension; Z90.710 Acquired absence of both cervix and uterus; Z88.0 Allergy status to penicillin; Z88.8 Allergy status to other drugs, medicaments and biological substances; Z79.82 Long term (current) use of aspirin; Z79.899 Other long term (current) drug therapy; Z86.19 Personal history of other infectious and parasitic diseases ==

== ENCOUNTER → 2021-10-20 | Outpatient (CLI) | payer OTHER, MEDICAID ==
[~2021-10-20] MED LIST changes: +LIPITOR10 MG PO
== END ==
LOC: M.PC 08:00
PROVIDERS: ATTEND Anesthesiology Pain Medicine
DX: M54.16 Radiculopathy, lumbar region (principal); G89.29 Other chronic pain; N39.0 Urinary tract infection, site not specified; M25.569 Pain in unspecified knee; K59.03 Drug induced constipation; I70.8 Atherosclerosis of other arteries; I10 Essential (primary) hypertension; Z88.0 Allergy status to penicillin; Z88.8 Allergy status to other drugs, medicaments and biological substances; Z79.82 Long term (current) use of aspirin; Z79.899 Other long term (current) drug therapy